=== PATIENT | female | born 1970 | race Caucasian/White ===

== ENCOUNTER 2017-07-08 22:40 | Emergency (ER) | payer BC ==
[~2017-07-08] VITALS: Ht 157.5 cm; Wt 57.6 kg
--- OUTSIDE RECORDS SUMMARY | 2017-07-08 22:48 | XMS | Clinical Summary ---
Demographics + + + | Address | [address] | | | [place] [address] | + + + | Home Phone | | + + + | Preferred Language | Unknown | + + + | Marital Status | Unknown | + + + | Jainism Affiliation | Unknown | + + + | Race | Unknown | + + + | Ethnic Group | Unknown | + + + Author + + + | Author | [facility] | + + + | Organization | [facility] | + + + | Address | Unknown | + + + | Phone | Unavailable | + + + Care Team Providers + +------+ + | Care Development Spec Name | Role | Phone | + +------+ + | Nic Sims MD | PP | | + +------+ + Allergies Not on File Current Medications Not on file Active Problems Not on file Social History + +-------+ +--------+------+ | Tobacco Use | Types | Packs/Day | Years | Date | | | | | Used | | + +-------+ +--------+------+ | Never Assessed | | | | | + +-------+ +--------+------+ + + + | Sex Assigned at | Date Recorded | | | | + + + | Not on file | | + + + Last Filed Vital Signs + + + + | Vital Sign | Reading | Time Taken | + + + + | Blood Pressure | 144/95 | 01/26/2010 12:56 PM PDT | + + + + | Pulse | - | - | + + + + | Temperature | - | - | + + + + | Respiratory Rate | - | - | + + + + | Oxygen Saturation | - | - | + + + + | Inhaled Oxygen | - | - | | Concentration | | | + + + + | Weight | 72.6 kg (160 lb) | 01/26/2010 12:56 PM PDT | + + + + | Height | 157.5 cm (5' 2") | 01/26/2010 12:56 PM PDT | + + + + | Body Mass Index | 29.26 | 01/26/2010 12:56 PM PDT | + + + + Plan of Treatment + + + + + | Health Maintenance | Due Date | Last Done | Comments | + + + + + | Vaccine: | | | | | Dtap/Tdap/Td (1 - | 0 | | | | Tdap) | | | | + + + + + | Cervical Cancer | | | | | Screening (Pap) | 2 | | | + + + + + | Vaccine: Influenza | | | | | (Season Ended) | 8 | | | + + + + + Results Not on filefrom Last 3 Months Insurance +---------+--------+ +------+-------+ + | Payer | Benefi | Subscriber | Type | Phone | Address | | | t Plan | ID | | | | | | / | | | | | | | Group | | | | | +---------+--------+ +------+-------+ + | PREMERA | PREMER | xxxxxxxxxxx | | | [address] [address] | | | A BLUE | xxx | | | [place] | | | CARD | | | | [phone] | +---------+--------+ +------+-------+ + + +--------+ +--------+ + + | Guarantor Name | Accoun | Relation to | Date | Phone | Billing Address | | | t Type | Patient | of | | | | | | | | | | + +--------+ +--------+ + + | JACQUELINE GEE | Person | Self [birth year] | Home: | [address] | | | [place] | | 1970 | [phone] [place] [address] | | | abbie | | | [phone] | | + +--------+ +--------+ + +
--- OUTSIDE RECORDS SUMMARY | 2017-07-08 22:48 | XMS | Clinical Summary ---
Demographics + + + | Address | [address] | | | [place] [address] | + + + | Home Phone | | + + + | Preferred Language | Unknown | + + + | Marital Status | | + + + | Yarsanism Affiliation | Unknown | + + + | Race | Unknown | + + + | Ethnic Group | Unknown | + + + Author + + + | Author | [facility] | | | and [place] | + + + | Organization | [facility] | | | and [place] | + + + | Address | Unknown | + + + | Phone | Unavailable | + + + Support + + +---------+ + | Name | Relationship | Address | Phone | + + +---------+ + | MONSERRAT GEE | ECON | Unknown | | + + +---------+ + Care Team Providers + +------+ + | Care Basket Weaver Name | Role | Phone | + +------+ + PP | Unavailable | + +------+ + Allergies + + + +--------+ + | Active Allergy | Reactions | Severity | Noted | Comments | | | | | Date | | + + + +--------+ + | Penicillins | | | | | + + + +--------+ + Current Medications + + +-------+---------+------+------+-------+ | Prescription | Sig. | Disp. | Refills | Star | End | Statu | | | | | | t | Date | s | | | | | | Date | | | + + +-------+---------+------+------+-------+ | propranolol | Take 120 mg by mouth | | | 12/02 | | Activ | | (INDERAL LA) 120 mg | Daily. | | | 07/21 | | e | | 24 hr capsule | | | | 12 | | | + + +-------+---------+------+------+-------+ | METHOCARBAMOL PO | TABS Take/use as | | | 12/02 | | Activ | | | needed. | | | 07/21 | | e | | | | | | 12 | | | + + +-------+---------+------+------+-------+ | | TABS Take/use as | | | 12/02 | | Activ | | Aspirin-Acetaminophe | needed. | | | 07/21 | | e | | n-Caffeine (EXCEDRIN | | | | 12 | | | | MIGRAINE PO) | | | | | | | + + +-------+---------+------+------+-------+ Active Problems + + + | Problem | Noted Date | + + + | MIGRAINE W/AURA W/INTRACT W/O STATUS MIGRAINOSUS | | + + + + + | Overview: ICD-10 Record update | + + + +---+ | SLEEP APNEA | | + +---+ Social History + +-------+ +--------+------+ | Tobacco [...] + + + | Blood Pressure | 134/80 | 06/09/2009 0000 PST | + + + + | Pulse [...] + + + + | Weight | 71.2 kg (157 lb) | 06/09/2009 0000 PST | + + + + | Height | 157.5 cm (5' 2") | 06/09/2009 0000 PST | + + + + | Body Mass Index | 28.72 | 06/09/2009 0000 PST | + + + + Plan of Treatment + + + + + | Health Maintenance | Due Date | Last Done | Comments | + + + + + | Vaccine: | | | | | Dtap/Tdap/Td (1 - | 0 | | | | Tdap) | | | | + + + + + | CERVICAL CANCER | | 06/01/2008 | | | SCREENING (PAP EVERY | 2 | | | | 3 YEARS 21-64 ) | | | | + + + + + | Vaccine: Influenza | | | | | (Season Ended) | 8 | | | + + + + + Results Not on filefrom Last 3 Months
--- OUTSIDE RECORDS SUMMARY | 2017-07-08 22:48 | XMS | Clinical Summary ---
Demographics + + + | Address | [address] | | | [place] [address] | + + + | Home Phone | | + + + | Preferred Language | Unknown | + + + | Marital Status | | + + + | Baptist Affiliation | Unknown | + + + | Race | Unknown | + + + | Ethnic Group | Unknown | + + + Author + + + | Author | [facility] | | | and [place] | + + + | Organization | [facility] | | | and [place] [...] Team Providers + +------+ + | Care Clip Baker Name | Role | Phone | + [...]
--- OUTSIDE RECORDS SUMMARY | 2017-07-08 22:48 | XMS | Clinical Summary ---
Demographics + + + | Address | [address] | | | [place] [address] | + + + | Home Phone | | + + + | Preferred Language | Unknown | + + + | Marital Status | Unknown | + + + | Rastafarian Affiliation | Unknown | + + + | Race | Unknown | + + + | Ethnic Group | Unknown | + + + Author + + + | Author | [facility] | + + + | Organization | [facility] | + + + | Address | Unknown | + + + | Phone | Unavailable | + + + Care Team Providers + +------+ + | Care Matrix Drier Tender Name | Role | Phone | + [...] | [phone] | | | [address] [address] | | | A BLUE | xxx | | | [place] | | | CARD | | | | [phone] | +---------+--------+ +------+-------+ + + +--------+ +--------+ [...] | 1970 | [phone] | [place] [address] | | | [place] | | | [phone] | | + +--------+ +--------+ + +
[2017-07-08] MEDS ORDERED: COZAAR25 MG PO (22:57)
[2017-07-08] MEDS ORDERED: HYDROCHLOROTHIA25 MG PO (22:57)
--- NOTE | 2017-07-09 06:26 | EKG ---
[facility] [address] [place], [place] [address] Signed Normal sinus rhythm Nonspecific ST abnormality Abnormal ECG No previous ECGs available Confirmed by URIEL SOTO MD ([id number]) on 07/09/2017 6:25:57 AM Electronically Signed By: URIEL SOTO MD 07/09/17 0626 PATIENT NAME: MICHAEL GEE EARNEST Electrocardiogram DATE OF : 70 PHYSICIAN: URIEL SOTO MD REPORT #: [id number] REPORT IS CONFIDENTIAL AND NOT TO BE RELEASED WITHOUT AUTHORIZATION
== END 2017-07-09 00:44 | disposition home or self-care (01) ==
LOC: ED 22:40
DX: R07.9 Chest pain, unspecified (principal); I10 Essential (primary) hypertension; F17.200 Nicotine dependence, unspecified, uncomplicated; Z88.0 Allergy status to penicillin; Z88.1 Allergy status to other antibiotic agents; Z79.899 Other long term (current) drug therapy
CPT/HCPCS: 71045; 80053; 84484; 85025; 93005; 93010; 99284

== ENCOUNTER → 2019-02-02 | Emergency (ER) | payer OTHER ==
[~2019-02-02] VITALS: Ht 157.5 cm; Wt 68.0 kg
[~2019-02-02] MED LIST: AZO STANDARD95 MG PO; CHANTIX1 MG PO; COZAAR25 MG PO; HYDROCHLOROTHIA25 MG PO; K-TAB ER20 MEQ PO; MACROBID 100 M100 MG PO; MULTI VITAMIN1 EACH PO; NORCO 10-325 T1 EACH PO; OSTERA TABLET1 EACH PO; POTASSIUM CHLO20 ME1 PO; PYRIDIUM200 MG PO; TOPAMAX50 MG PO; WELLBUTRIN XL150 MG PO
--- OUTSIDE RECORDS SUMMARY | 2019-02-02 03:12 | XMS ---
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 [facility] has no Care Guidelines for this patient. [place] VISIT COUNT (12 MO.) 1 [place] TOTAL 1 NOTE: Visits indicate total known visits. ED/UCC VISIT TRACKING (12 MO.) 02/02/2019 03:09 [place] [place] TYPE: Emergency COMPLAINT: - URINE PROBLEM INPATIENT VISIT TRACKING (12 MO.) No inpatient visits to display in this time frame [id number]
== END ==
LOC: ED 03:08
DX: N39.0 Urinary tract infection, site not specified (principal); I10 Essential (primary) hypertension; Z88.0 Allergy status to penicillin; Z88.8 Allergy status to other drugs, medicaments and biological substances; Z91.040 Latex allergy status; Z88.1 Allergy status to other antibiotic agents; Z79.899 Other long term (current) drug therapy
CPT/HCPCS: 81001; 87088; 99283

== ENCOUNTER 2019-05-15 20:19 | Emergency (ER) | payer OTHER ==
[~2019-05-15] VITALS: Ht 157.5 cm; Wt 73.5 kg
--- OUTSIDE RECORDS SUMMARY | 2019-05-15 20:22 | XMS ---
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 Care History Medical/Surgical 02/04/2019 [facility] - Patient is currently established with [facility]. If patient is seen in the ED during business hours. Please contact [facility] at [facility]. Care Recommendation: This patient has had 5 or more Emergency Department visits in the last 12 months.\T\nbsp; Patient requires education on the scope and purpose of the ED as an acute care provider not a Primary Care Provider and should not be utilized for chronic conditions.\T\nbsp; These are guidelines and the provider should exercise clinical judgment when providing care. E.D. VISIT COUNT (12 MO.) 2 [facility] TOTAL 2 NOTE: Visits indicate total known visits. ED/UCC VISIT TRACKING (12 MO.) 05/15/2019 20:19 [facility] [place] TYPE: Emergency COMPLAINT: - EAR PAIN 02/02/2019 03:09 [place] [place] TYPE: Emergency COMPLAINT: - URINE PROBLEM DIAGNOSES: - Allergy status to oth drug/meds/biol subst status - Urinary tract infection, site not specified - Other senior living (current) drug therapy - Latex allergy status - Allergy status to penicillin - Allergy status to other antibiotic agents status - Essential (primary) hypertension - Dysuria INPATIENT VISIT TRACKING (12 MO.) No inpatient visits to display in this time frame [id number]
[2019-05-15] MEDS ORDERED: PREDNISONE20 MG PO (21:47)
[2019-05-15] MEDS ORDERED: DOXYCYCLINE HY100 MG PO (21:47)
== END 2019-05-15 21:57 | disposition home or self-care (01) ==
LOC: ED 20:19
DX: J40 Bronchitis, not specified as acute or chronic (principal); I10 Essential (primary) hypertension; Z87.891 Personal history of nicotine dependence; Z88.0 Allergy status to penicillin; Z88.8 Allergy status to other drugs, medicaments and biological substances; Z91.040 Latex allergy status; Z88.1 Allergy status to other antibiotic agents; Z79.899 Other long term (current) drug therapy
CPT/HCPCS: 71046; 99283-25; J7512

== ENCOUNTER 2020-05-28 05:55 | Inpatient (IN) | payer OTHER ==
[~2020-05-28] VITALS: Ht 157.5 cm; Wt 77.3 kg
--- NOTE | ~2020-05-28 | OR ---
[facility] [address] [facility] [employer] [employer], [place] [address] Draft DATE OF OPERATION: 05/28/2020 SURGEON: Ellie Magallon DO PREOPERATIVE DIAGNOSES: 1. Postmenopausal bleeding. 2. History of endometrial ablation. 3. Thickened endometrial stripe. POSTOPERATIVE DIAGNOSES: 1. Postmenopausal bleeding. 2. History of endometrial ablation. 3. Thickened endometrial stripe. 4. Uterine perforation into the right broad ligament. PROCEDURES PERFORMED: 1. Hysteroscopy. 2. Dilation and curettage. 3. Total laparoscopic hysterectomy with bilateral salpingectomy. 4. Cystoscopy. MANUFACTURING LEADER: Lili Jimenes MD. ANESTHESIA: General. ESTIMATED BLOOD LOSS: 150 mL. SPECIMENS: 1. Uterus and cervix. 2. Bilateral fallopian tubes. FINDINGS: The patient with normal external genitalia with normal clitoris, urethral meatus, bilateral [place]'s, and Bartholin's. The cervix is quite stenotic and the uterine cavity was ablated. Full rapid fluid loss was noted consistent with uterine perforation. On laparoscopy, perforation noted into the right broad ligament with significant edema of the right broad ligament secondary to hysteroscopic fluid with minimal blood loss. PATIENT NAME: MICHAEL GEE OPERATIVE REPORT DATE OF : 70 REPORT #: [id number] PHYSICIAN: ELLIE MAGALLON DO PCP: PATY FIGUEROA MD REPORT IS CONFIDENTIAL AND NOT TO BE RELEASED WITHOUT AUTHORIZATION [facility] [address] [place], [place] [address] Draft Normal bilateral ovaries. Status post tubal ligation. Small uterus with normal uterine contour. Following hysterectomy. Some oozing from the right broad ligament that was made hemostatic with Tisseel and judicious use of bipolar cautery. On cystoscopy, normal urethra, bladder, and bilateral ureteral jets noted. COMPLICATIONS: Uterine perforation. INDICATIONS: Ms. Gee is a very pleasant 49-year-old, G15, P8 female, who presents for hysteroscopy, D and C. She has postmenopausal bleeding for the past several months, and FSH confirmed postmenopausal status. She had been amenorrheic for approximately 11 years following uterine ablation. She complains of clots, dysmenorrhea, and malodorous discharge. Ultrasound was performed that demonstrated a normal size uterus with normal echotexture, but thickened ill-defined endometrial stripe. I recommended hysteroscopy, D and C. Risks, benefits, and alternatives were discussed in detail with the patient. The patient understands and wishes to proceed with the procedure. TECHNIQUE: The patient was taken to the operating room, where a time-out was performed to confirm correct patient and correct procedure. MAC anesthesia was adequately established, and the patient was prepped and draped in the dorsal lithotomy position with her feet in Yellofin stirrups. ICPs were on running and no preoperative antibiotics or heparin were indicated. The bladder was drained and a weighted speculum was placed in the vagina and the anterior lip of the cervix was grasped with an Allis clamp. The cervix was noted to be very stenotic with gentle dilation with Hegar dilators. A single-tooth tenaculum was then placed on the posterior lip of the cervix to help keep the uterus midline and to assist with gentle dilation. The external os was gently dilated to a depth of approximately 1 cm and the hysteroscope was then placed into the os. The cystoscope was very slowly advanced along the cervical canal. After several cm, the cervical canal came to an apparent blind end. Gentle dilation was performed with the camera and a tract was gently dilated. It was recognized that this could be an aberrant tract and not entering the uterine cavity due to her history of ablation. A potential space was opened in the uterus that was felt to possibly represent the uterine cavity and an apparent fibroid was noted. A MyoSure Lite device was selected and advanced and very careful curettage was performed to obtain a small sample. The tip of the MyoSure device was kept in excellent view of the camera at all times after a small sample was obtained. There was noted to be a sudden increase in fluid deficit and I quickly suspected perforation. Hysteroscopic fluid was stopped and a uterine sound was selected and gently advanced. This advanced without any resistance greater than the anticipated cervical length of 6.6 cm confirming likely perforation. Hysteroscopy was discontinued and the patient was evaluated with no evidence of hemorrhage. Decision was made to PATIENT NAME: MICHAEL GEE OPERATIVE REPORT DATE OF : 70 REPORT #: [id number] PHYSICIAN: ELLIE MAGALLON DO PCP: PATY FIGUEROA MD REPORT IS CONFIDENTIAL AND NOT TO BE RELEASED WITHOUT AUTHORIZATION [address] [address] Draft proceed with laparoscopy for further evaluation. Dr. Jimenes was called and kindly presented to the operating room. The drapes were removed after the single-tooth tenaculum and Allis clamps were removed from the cervix. The patient was then intubated under general anesthetic and prepped and draped for hysteroscopy. The patient was then given 2 g of Ancef preoperatively and was typed and screened. Vital signs remained normal. The patient was prepped and draped in the dorsal lithotomy position. A latex-free Dailey catheter was inserted into the bladder and noted to be draining well. The anterior lip of the cervix was grasped with an Allis clamp and a [employer] uterine manipulator was gently placed into the uterine cavity with careful attention to not advance greater than 6 cm consistent with uterine size on the ultrasound. The uterine manipulator balloon was inflated and the vaginal cuff placed with excellent placement noted. The surgeon's gloves were changed. Attention was turned to the base of the umbilicus. The base of the umbilicus was infiltrated with 0.25% Marcaine. A 5 mm stab incision was made at the base of the umbilicus and a 5 mm port was attempted to be placed under direct visualization. This was not easily accomplished on the first time and preperitoneal insufflation was noted. The 5 mm trocar was removed and decision was made to proceed with open abdominal entry with Claudine port. A 5 mm incision was then extended to 10 mm. The fascia was grasped with hemostats, elevated, and fascial incision was extended using Metzenbaum scissors. The peritoneum was entered bluntly and an S retractor was used to elevate the peritoneum and Claudine port was placed. Pneumoperitoneum was established and survey of the abdomen and pelvis was performed. No intraperitoneal bleeding was noted. However, the right round ligament was noted to be grossly edematous with small amount of blood, but majority of this edema likely represented hysteroscopic fluid. The left broad ligament was normal. Decision was made to proceed with hysterectomy as the patient had desired strongly hysterectomy prior to the procedure and could not rule out retroperitoneal bleed in the broad ligament. A 5 mm assist port was placed in left lower quadrant under direct visualization without complication. An 8 mm expanding assist port was placed in the right lower quadrant under direct visualization without complication. The left fallopian tube was grasped, elevated, and dissected along the mesosalpinx using LigaSure device. Contralateral fallopian tube was then grasped and divided along the mesosalpinx without difficulty. The right utero-ovarian ligament was fulgurated and divided with excellent hemostasis. The round ligament was then fulgurated and divided and the broad ligament opened. A small amount of blood clot with hysteroscopic fluid was noted with no active bleeding identified. The anterior leaf of the right broad ligament was divided down to the vaginal cup without difficulty. The posterior leaf was divided down to the right uterosacral ligament without difficulty. Significant edema made identification of the uterine vessels somewhat difficult and decision was made to proceed with the left side of the dissection. The left utero-ovarian was fulgurated and divided and the left round fulgurated and divided. The leaves of the broad ligament were dissected to the angle of the vaginal cup anteriorly into the uterosacral ligament posteriorly. The bladder was then pushed well below the vaginal cup in the uterosacral ligament divided posteriorly. PATIENT NAME: MICHAEL GEE OPERATIVE REPORT DATE OF : 70 REPORT #: [id number] PHYSICIAN: ELLIE MAGALLON DO PCP: PATY FIGUEROA MD REPORT IS CONFIDENTIAL AND NOT TO BE RELEASED WITHOUT AUTHORIZATION [address] [address] Draft The uterine vessels were identified, fulgurated, and divided without difficulty and with excellent hemostasis appreciated. Attention was then turned to the right uterine vessels. These were better identified. However, this area was quite edematous as well. They were then fulgurated and divided also with excellent hemostasis. No active bleeding was noted from the broad ligament. Colpotomy was then performed using Sonicision device in a circumferential manner without complication. The uterus and cervix were delivered through the vagina. Some oozing was noted along the posterior peritoneum and to the right broad ligament. Judicious use of the above bipolar cautery was used with careful dissection of the broad ligament to avoid injury of the ureter. Once hemostasis was appreciated, the pelvis was irrigated. The colpotomy was then repaired using V-Loc suture with an Endostitch device with careful attention to incorporate the uterosacral ligaments bilaterally as well as the vaginal epithelium with each bite. Excellent closure was noted with good apical support. The pelvis was again irrigated. A small amount of oozing was noted near the right ovary as well as the right broad ligament. Clots was fulgurated at the ovary and the ovary was noted to be hemostatic. The oozing continued along the peritoneal edge of the right broad ligament. A very careful dissection using blunt dissection and hydrodissection was performed to isolate oozing vessels and fulguration was judiciously applied with the LigaSure device with careful attention to avoid ureteral injury. Once excellent hemostasis was appreciated, Tisseel was applied to the dissection sites again with excellent hemostasis appreciated. Pneumoperitoneum was reduced and five minutes were allowed to pass. Pneumoperitoneum was reestablished with no additional oozing noted. The pelvis was irrigated with large amount of fluid again to ensure hemostasis. Once hemostasis was appreciated, pneumoperitoneum was reduced. Trocars were removed and umbilical fascia was reapproximated using 0 Vicryl in a running nonlocked manner. Stay sutures previously placed on the fascia were ligated to provide additional support. The skin was then reapproximated using 4-0 Monocryl in subcuticular stitch with excellent hemostasis and cosmesis. Attention was then turned to cystoscopy. The Dailey catheter was removed and a 70 degree cystoscope was placed in the urethral meatus and advanced under direct visualization to the bladder. Normal urethra and bladder were noted. Bilateral ureteral jets were appreciated. The bladder was drained. Dailey catheter was reinserted and the patient was taken to PACU in good and stable condition. Sponge, needle, instrument count was correct x2 at the end of the procedure. Dr. Jimenes was present and participated in all portions of procedure. Fluid deficit was noted to be 1400 at the end of hysteroscopy. Ellie Magallon, DO PATIENT NAME: JOANNRONNELLMICHAEL OPERATIVE REPORT DATE OF : 70 REPORT #: [id number] PHYSICIAN: ELLIE MAGALLON DO PCP: PATY FIGUEROA MD REPORT IS CONFIDENTIAL AND NOT TO BE RELEASED WITHOUT AUTHORIZATION [facility] [address] [facility] [address] [place] [address] Draft NKECHI/MALIHA /[id number] Copies: ~ PATIENT NAME: VALENTINOELIELMICHAEL OPERATIVE REPORT DATE OF : 70 REPORT #: [id number] PHYSICIAN: ELLIE MAGALLON DO PCP: PATY FIGUEROA MD REPORT IS CONFIDENTIAL AND NOT TO BE RELEASED WITHOUT AUTHORIZATION
[~2020-05-28 05:55] MED LIST changes: +DOXYCYCLINE HY100 MG PO; -OSTERA TABLET1 EACH PO; +PREDNISONE20 MG PO; +VITAMIN D325 MCG PO
--- NOTE | 2020-05-28 10:52 | NUR ---
05/28/20 1051 Melani Ureña 1043- PT ARRIVES TO PACU NONAROUSABLE TO NOXIOUS STIMULI WITH AN OPA IN PLACE. RESP EVEN AND UNLABORED. OXYGEN SAT HIGH 90'S ON 8L VIA MASK. PT'S ABD IS DISTENDED. DR. DICKINSON IS AWARE.
--- NOTE | 2020-05-28 11:44 | NUR ---
49YR OLD WOMAN TRANSFERRED VIA STRETCHER TO ROOM 109. PT IS ALERT, ORIENTED, SLID ONTO WITH 34 PERSON ONTO BED, PT DENIES NAUSEA, RATES ABD PAIN 6/10, SCOPE SITES WITH BANDAIDES. SCANT AMOUNT OF DRAINAGE VISIBLE. STREET CATH IS PATENT WITH YELLOW URINE, NOTED LATEX ALLERGY. POSITIONED FOR COMFORT, SCD'S ON, HOB AT 30 DEG, GIVEN CELL PHONE SHE WANTS TO TALK WITH DAUGHTER. ORIENTED TO ROOM AND CALL LIGHT, DENIES FURTHER NEEDS, ORDERS NOTED.
--- NOTE | 2020-05-28 12:03 | NUR ---
DR DICKINSON HERE TO SEE PT AND EXPLAIN SURGERY, PT DENIES ANY QUESTIONS, WARM BLANKETS FOR COMFORT, ASKING FOR PAIN MEDICATION.
--- NOTE | 2020-05-28 12:15 | NUR ---
MORPHINE 4MG IV GIVEN, WARM BLANKETS FOR COMFORT. RESTING BETTER.
--- NOTE | 2020-05-28 13:38 | NUR ---
PT IS AWAKE, DENIES NAUSEA, STATES SHE COULD EAT SOMETHING, WILFREDO CRACKERS AND SPRITE GIVEN. SCOPE SITES UNCHANGED, SCANT AMOUNT RED DRAINAGE ON PERIPAD. IVF PATENT, STREET SECURE AND PATENT WITH YELLOW URINE. CALL LIGHT IN EASY REACH.
--- NOTE | 2020-05-28 13:56 | NUR ---
TOLERATING CRACKERS WELL, LUNCH ORDER PLACED, NORCO GIVEN AT THIS TIME. TALKING ON PHONE WITH FAMILY.
--- NOTE | 2020-05-28 14:25 | NUR ---
SET UP WITH LUNCH TRAY, REPORTS PAIN IMPROVED AFTER NORCO, DENIES NAUSEA. AGREES TO GO FOR WALK AFTER EATING.
[2020-05-28] MEDS ORDERED: CYCLOBENZAPRINE10 MG PO (15:06)
--- NOTE | 2020-05-28 15:27 | NUR ---
PT STOOD AND AMBULATED IN HALLWAY, TOLERATED VERY WELL, INSTRUCTED ON USE OF IS. WANTED TO LAY BACK DOWN WITH WARM BLANKETS, WEARING SCD'S. RATING ABD PAIN 4/10 AFTER WALK. IN GOOD SPIRITS. WATCHING TV PROGRAM AND ORDERED DINNER. CALL LIGHT IN EASY REACH.
[2020-05-28] MEDS ORDERED: BUPROPION HCL150 M2 PO (16:17)
--- NOTE | 2020-05-28 16:19 | NUR ---
MED REC COMPLETE
--- NOTE | 2020-05-28 16:58 | NUR ---
José Antoniolofco had no bowel movement but did pass gas. Pt returned to bed, SCD replaced and restarted at privious settings. Warm blanket applied to abdomen. Call light withing reach. Pt denies he needs anything further at this time.
--- NOTE | 2020-05-28 17:09 | NUR ---
DINNER TRAY HAS ARRIVED, PT REMAINS IN GOOD SPIRITS, STATES SHE IS HUNGRY.
--- NOTE | 2020-05-28 17:59 | NUR ---
PATIENT SITTING UP IN BED WATCHING TV. PULSE HIGH, RN NOTIFIED. VITALS CHARTED. CALL LIGHT IN REACH. NO FURTHER NEEDS AT THIS TIME.
--- NOTE | 2020-05-28 18:16 | NUR ---
CALL PLACED TO DR DICKINSON TO UP DATE HIM ON PATIENT. HRR-124, GOOD URINE OUTPUT, VS STABLE, H/H 12.5/38.3 @ 1315. SCOPE SITES INTACT, PATIENT DENIES ANY CONCERNS, STATES SHE IS COMFORTABLE. DR DICKINSON SAID HE IS HAD PLANNED ON STOPPING IN TO SEE HER. NO NEW ORDERS.
--- NOTE | 2020-05-28 19:00 | NUR ---
DR DICKINSON IN TO SEE PT, DECREASED IV FLUIDS TO 75ML/HR, STATES HE WILL ENTER ORDER. PLEASED WITH PROGRESS.
--- NOTE | 2020-05-28 19:05 | NUR ---
REPORT RECEIVED FROM DEVONTE ZHANG. PT RESTING IN BED A+O, IVF INFUSING WNL. YENIFER PATENT. STATES NO NEEDS AT THIS TIME, CALL LIGHT IN REACH
--- NOTE | 2020-05-28 20:07 | NUR ---
IN TO BOOST POT IN BED, PROVIDED PT WITH A SODA, NO FURTHER NEEDS AT THIS TIME
--- NOTE | 2020-05-28 20:45 | NUR ---
IN TO GET PT VITALS, I&Os DONE, CATH CATH COMPLETE AT THIS TIME, NO FURTHER NEEDS AT THIS TIME
--- NOTE | 2020-05-28 21:30 | NUR ---
Scheduled medications administered, Pt reports abdominal pain but states she can wait until PRN medication available. Lap sites x3 with bandaids, C/D/I, slight bruising around umbilicus, abdomen soft and tender. IVF infusing WNL, new bag hung. SCDs in place. Pt tolerating regular diet. Reports no further needs at this time, call light in reach.
--- NOTE | 2020-05-28 22:49 | NUR ---
PRN medication administered for 6/10 pain. Pt resting in bed watching tv, states no further needs at this time. Call light in reach.
--- NOTE | 2020-05-28 23:42 | NUR ---
Rounded on patient, resting in bed with eyes closed. Breathing unlabored. IVF infusing WNL. No apparent needs.
--- NOTE | 2020-05-29 02:25 | NUR ---
IN TO GET 2AM VITALS, STREET EMPTIED, FRESH ICE WATER GIVEN, NO FURTHER NEEDS AT THIS TIME
--- NOTE | 2020-05-29 05:47 | NUR ---
Dailey cath DC per orders, pt due to void. States no pain at this time, water refilled, IVF infusing WNL. VSS, A+O, on room air. Call light in reach.
--- NOTE | 2020-05-29 06:13 | NUR ---
Pt requests PRN pain medication for 10/10 abdominal pain. Lap sites C/D/I, abdomen soft. Pt due to void after tejada removal. Coffee and water provided, gown changed. Pt reports no other needs at this time, in good spirits. Call light in reach.
--- NOTE | 2020-05-29 07:06 | NUR ---
PT UP TO VOID, SBA WITH IV POLE, NO FURTHER NEEDS AT THIS TIME
--- NOTE | 2020-05-29 09:30 | NUR ---
REPORT RECIEVED FROM NIGHT RN AND PT. CARE RESUMED. PT. IS ALERT AND ORIENTED. ABD LAP SITE DRESSINGS X3 ARE CDI. PT. REPORTS 4/10 ABD PAIN AND NORCO ADMIN. BOWEL TONES ACTIVE AND ABD TENDER TO PALP. PT. PASSING GAS. PT. STATES SHE TOLERATED BREAKFAST WELL AND DENIES NAUSEA. DISCUSSED POC AND WILL AMBULATE AROUND THE UNIT THIS MORNING. PT. LEFT RESTING IN BED WITH CALL LIGHT IN REACH.
--- NOTE | 2020-05-29 10:26 | NUR ---
SPOKE WITH PATIENT IN ROOM. SHE HAD JUST BEEN IN THE BATHROOM, IS AMBULATING INDEPENDENTLY IN ROOM. PATIENT LIVES WITH ADULT CHILDREN WHO CAN HELP NEEDED. THEY WILL PROVIDE TRANSPORTATION HOME. PATIENT USES NO DME AND DOES NOT KNOW OF ANYTHING SHE NEEDS. HER PREFERENCE FOR DISCHARGE IS HOME. SHE IS UNEMPLOYED AT THIS TIME, BUT IS NOT WORRIED FINANCIALLY DUE TO OTHERS LIVING IN THE HOME. SHE IS NOT CONCERNED ABOUT AFFORDING MEDS/FOOD/UTILITIES. PATIENT WILL DISCHARGE TO HOME.
--- NOTE | 2020-05-29 10:57 | NUR ---
PATIENT SITTING UP IN BED WATCHING TV. VITALS AND I&O'S CHARTED. CALL LIGHT IN REACH. NO FURTHER NEEDS AT THIS TIME.
--- NOTE | 2020-05-29 12:18 | PATH ---
[facility] [address] [place], [place] [address] Signed SPECIMEN(S): A UTERINE CURETTINGS SPECIMEN(S): B CERVIX, UTERUS, AND BILATERAL TUBES SPECIMEN SOURCE: A. UTERINE CURETTINGS B. CERVIX, UTERUS, AND BILATERAL TUBES CLINICAL HISTORY: Hysteroscopy DC. Postmenopausal bleeding. History of endometrial ablation. FINAL PATHOLOGIC DIAGNOSIS: A. Uterus, curettage: - Fragments of benign smooth muscle, squamous epithelium, and vessels with no histopathologic abnormality. B. Uterus, cervix, and bilateral fallopian tubes, hysterectomy and bilateral salpingectomy: - Cervix: Extensively denuded mucosa, Nabothian cysts. - Endometrium: No endometrium identified, changes compatible with endometrial ablation. - Myometrium: No histologic abnormality. - Serosa: Endosalpingiosis. - Fallopian tubes: Evidence of prior ligation, paratubal cysts. - No evidence of malignancy. NAL:cml:C2NR MICROSCOPIC EXAMINATION: Histologic sections of all submitted blocks are examined by light microscopy. These findings, together with the gross examination, support the pathologic diagnosis. GROSS DESCRIPTION: Two specimens are received in two containers, labeled "RG." A. The specimen, labeled "RG, uterine curettings," is received in formalin and consists of irregular shaped, membranous and hemorrhagic tissue fragments that aggregate measure 1.5 x 0.7 x 0.1 cm. Specimen is entirely submitted in cassette (A1). B. The specimen, labeled "RG, cervix, uterus, bilateral fallopian tubes," is received in formalin and consists of a uterus and cervix that measures 3.5 x 2.7 x 5.6 cm. Serosal surface is pink-humphries, smooth and focally congested. The uterus shows transmural defect in right upper corner that measures 1.5 cm in diameter. The uterus weighs 53 grams. PATIENT NAME: MICHAEL GEE PATHOLOGY DATE OF : 70 REPORT #: [id number] PHYSICIAN: VIANNEY PATHOLOGY PCP: PATY FIGUEROA MD REPORT IS CONFIDENTIAL AND NOT TO BE RELEASED WITHOUT AUTHORIZATION [facility] [address] [place], [place] [address] Signed The ectocervix is pink-humphries, focally congested and measures 2.6 x 2.7 cm. Sectioning through the cervix reveals pink-humphries, homogenous tissue. The endometrial cavity measures 2.2 x 1.0 cm. It is lined with pink-humphries, smooth endometrium. Sectioning through the myometrium reveals pink-humphries, homogenous tissue. No masses or abnormalities are grossly identified. The myometrium measures 1.1 cm in thickness. The endometrium measures less than 0.1 cm in thickness. from the uterus, within the container are two undesignated fallopian tubes. Both of them show fimbria and violaceous and smooth serosa. The first fallopian tube measures 3.5 cm in length and 0.7 cm in diameter. It shows a white plastic clip on proximal end. The second fallopian tube measures 5.6 cm in length and 0.7 cm in diameter. The tube is previously ligated with white plastic clip. Sectioning through both fallopian tubes is grossly unremarkable. Cassette Summary: (B1) Cervix, outbound sales representative sections, posterior inked (B2) Endomyometrium, outbound sales representative sections (B3) Endometrium, additional sections (B4) First fallopian tube, outbound sales representative sections (B5) Second fallopian tube, outbound sales representative sections JS (under the direct supervision of a pathologist) The Gross Description was prepared using a voice recognition system. The report was reviewed for accuracy; however, sound-alike word errors, addition and/or deletions may occur. If there is any question about this report, please contact Client Services. PERFORMING LABORATORY: The technical component was performed by [employer] [address] ([employer] Member: Sarah Alegria MD; CLIA# [id number]). Professional interpretation was performed by [facility], [address] [place] [address] (CLIA# [id number]). Diagnostician: Belem Perdomo MD Pathologist Electronically Signed 05/29/2020 Copies: PATIENT NAME: MICHAEL GEE PATHOLOGY DATE OF : 70 REPORT #: [id number] PHYSICIAN: VIANNEY TALLEY PCP: PATY FIGUEROA MD REPORT IS CONFIDENTIAL AND NOT TO BE RELEASED WITHOUT AUTHORIZATION [facility] [address] [place], [place] [address] Signed ~ PATIENT NAME: MICHAEL GEE PATHOLOGY DATE OF : 70 REPORT #: [id number] PHYSICIAN: VIANNEY PATHOLOGY PCP: PATY FIGUEROA MD REPORT IS CONFIDENTIAL AND NOT TO BE RELEASED WITHOUT AUTHORIZATION
[2020-05-29] MEDS ORDERED: IBUPROFEN800 MG PO (12:39)
[2020-05-29] MEDS ORDERED: HYDROCODON-ACE1 EA10 PO (12:40)
--- NOTE | 2020-05-29 13:05 | NUR ---
DISCHARGE PACKET REVIEWED WITH PT. AND ALL QUESTIONS ANSWERED. ABD LAP. DRESSINGS X3 ARE CDI. PT. LEFT WITH ALL BELONGINGS IN WHEELCHAIR WITH CLERICAL CLERK.
== END 2020-05-29 13:15 | disposition home or self-care (01) | DRG 742 ==
LOC: DS 05:55 → OPS 05:55 → DS 07:30 → OPS 07:30 → MS 11:30 → OPS 11:31 → MS 11:32
PROVIDERS: ADMIT Obstetrics & Gynecology; ATTEND Obstetrics & Gynecology
PROC: 0UDB8ZX Extraction of Endometrium, Via Natural or Artificial Opening Endoscopic, Diagnostic (ICD-10-PCS; principal; 2020-05-28 07:30)
PROC: 0UT9FZZ Resection of Uterus, Via Natural or Artificial Opening With Percutaneous Endoscopic Assistance (ICD-10-PCS; 2020-05-28 07:30)
PROC: 0UT7FZZ Resection of Bilateral Fallopian Tubes, Via Natural or Artificial Opening With Percutaneous Endoscopic Assistance (ICD-10-PCS; 2020-05-28 07:30)
DX: N95.0 Postmenopausal bleeding (principal); N99.71 Accidental puncture and laceration of a genitourinary system organ or structure during a genitourinary system procedure; N94.6 Dysmenorrhea, unspecified; R93.89 Abnormal findings on diagnostic imaging of other specified body structures; I10 Essential (primary) hypertension; R00.0 Tachycardia, unspecified; Z88.1 Allergy status to other antibiotic agents; Z88.8 Allergy status to other drugs, medicaments and biological substances; Z88.0 Allergy status to penicillin; Z91.040 Latex allergy status; Z98.890 Other specified postprocedural states; Z87.891 Personal history of nicotine dependence; Z79.899 Other long term (current) drug therapy
CPT/HCPCS: 00840; 36415; 85025; 85027; 86850; 86900; 86901; J0171; J0330; J0690; J1100; J1650; J1885; J2001; J2250; J2270; J2405; J2704; J3010; J7121

== ENCOUNTER 2021-08-10 06:50 | Day surgery (SDC) | payer OTHER ==
[~2021-08-10] VITALS: Ht 157.5 cm; Wt 77.2 kg
[~2021-08-10 06:50] MED LIST changes: +BUPROPION HCL150 M2 PO; +CYCLOBENZAPRINE10 MG PO; +HYDROCODON-ACE1 EA10 PO; +IBUPROFEN800 MG PO
--- NOTE | 2021-08-10 08:48 | NUR ---
08/10/21 0848 Autumn Rodarte 0842 PATIENT ARRIVES TO PACU UNRESPONSIVE TO VERBAL STIMULI. RESP EVEN AND UNLABORED, NC AT 2 LITERS.
--- NOTE | 2021-08-10 09:51 | NUR ---
0945: PT RETURNS TO DAY SURGERY ROOM 8 FOR EXTENDED RECOVERY. AROUSES WITH VERBAL STIMULATION BUT REMAINS DROWSY. VSS, RESP EVEN AND UNLABORED ON RA. DENIES NAUSEA AND PAIN. PASSING GAS INTERMITTENTLY. ICE WATER AT THE BEDSIDE. POC DISCUSSED AND PT AGREEABLE AT HIS TIME. CALL LIGHT WITHIN REACH. NO NEEDS VOICED
--- NOTE | 2021-08-10 10:52 | NUR ---
1050: PT WAKES WITH VERBAL STIMULUS AND HOLDS APPROPRIATE CONVERSATION. STATES "I JUST WANT A FEW MORE MINUTES" VSS, RESP EVEN AND UNLABORED. CONTS TO PASS GAS INTERMITTENTLY. SARAH PO INTAKE. DENIES PAIN AND NAUSEA. CALL LIGHT WITHIN REACH. NO NEEDS AT THIS TIME
--- NOTE | 2021-08-10 17:12 | NUR ---
1055: PT WITH CALL FOR THIS RN. STATES READINESS FOR DC. DANGLED AT THE BEDSIDE. SARAH WELL, DENIES DIZZINESS AND SOB. AMBULATES TO BR WITH STANDBY ASSIST. STEADY GAIT. DRESSES INDEPENDENTLY FOR DC. SL REMOVED WITH CATH TIP INTACT AND PRESSURE APPLIED TO SITE, WNL. DC INSTRUCTIONS PROVIDED AND DISCUSSED ORDERED. PT WITHOUT QUESTIONS AND CONCERNS AT THIS TIME, VOICES UNDERSTANDING. 1105: WHEELED OFF OF UNIT IN WC BY THIS RN FOR DC. TRANSFERS INTO VEHICLE INDEPENDENTLY AND APPROPRIATELY. NO PHYSICAL S/S OF DISTRESS AT THIS TIME
--- NOTE | 2021-08-11 06:04 | OR ---
[facility] [address] [place], [place] [address] Signed DATE OF OPERATION: 08/10/2021 SURGEON: Karlene Ruiz MD PREOPERATIVE DIAGNOSES: 1. Vaginal bleeding after bowel movements. 2. Chronic constipation, diarrhea. POSTOPERATIVE DIAGNOSES: 1. Minimal internal hemorrhoids. 2. 4 mm polyp at 6 cm. 3. 4 mm polyp at 8 cm. 4. 4 mm polyp at 55 cm (left colon). 5. 4 mm polyp at 25 cm. PROCEDURE: Colonoscopy with hot biopsies and random cold biopsies. ESTIMATED BLOOD LOSS: None. INDICATIONS: Jacqueline is a 50-year-old female asked to see me for colonoscopy. Apparently, she is having some bleeding from her vagina after her bowel movements. 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 She has had a previous hysterectomy. There is mesh holding up the vagina. She said there is no pain with her bleeding or the bowel movements. She talks about years of constipation alternating with diarrhea. She told me children were born vaginally. She has been through various laxatives and is very knowledgeable in that regard. She has no family history of colon cancer or polyps. No family history of inflammatory bowel disease. In the office, I gave her a pamphlet on colonoscopy. We reviewed the nature of the test. She understands there is risk including, but not limited to gas bloating, crampy abdominal pain, bleeding, perforation requiring surgery, and missed diagnosis. She also understands the need for IV conscious sedation. She had expressed understanding and wished to proceed. PROCEDURE IN DETAIL: Jacqueline was taken into our endoscopy suite and placed in the left lateral decubitus position. She was given a total of 10 mg of Versed and 200 mcg of fentanyl IV. She was still awake, we could not get the camera up much beyond the left colon. Therefore we Electronically Signed By: KARLENE RUIZ MD 08/11/21 0604 PATIENT NAME: JACQUELINE GEE OPERATIVE REPORT DATE OF : 70 REPORT #: [id number] PHYSICIAN: KARLENE RUIZ MD PCP: YULIA WETZEL PA-C REPORT IS CONFIDENTIAL AND NOT TO BE RELEASED WITHOUT AUTHORIZATION [facility] [address] [place], [place] [address] Signed asked an anesthesia provider to come and add propofol, that worked out very nicely. Jacqueline relaxed and the scope passed quite readily, then into the cecum itself. Her prep was quite excellent. We could easily see the appendiceal orifice and the ileocecal valve. We took pictures throughout for photodocumentation. The above-mentioned polyps were removed with the help of hot biopsy forceps. We took several random biopsies throughout the colon due the history of diarrhea. However, the colon appeared quite unremarkable. The rectum was unremarkable. Upon retroflexion of scope, we can see just routine minimal internal hemorrhoid columns. No inflammatory changes whatsoever. The gas had been suctioned out. The colonoscope removed. The digital rectal exam also showed no external hemorrhoids. No evidence of fissure particular in the anterior posterior midline. There were no fistula tracts. She had good sphincter tone. In fact, her sphincter is if not 4 cm in length, which is a little longer than many female patients. There were no masses. Overall, Jacqueline tolerated the procedure quite well. RECOMMENDATIONS: I will see Jacqueline back in my office in 7 to 14 days to review her results. Karlene Ruiz MD ALB/MODL /[id number] cc: MD Elmer Koenig DO Jacqueline Brown, PA-C Copies: KARLENE RUIZ MD, JAMES D DO ~ Electronically Signed By: KARLENE RUIZ MD 08/11/21 0604 PATIENT NAME: JACQUELINE GEE OPERATIVE REPORT DATE OF : 70 REPORT #: [id number] PHYSICIAN: KARLENE RUIZ MD PCP: YULIA WETZEL PA-C REPORT IS CONFIDENTIAL AND NOT TO BE RELEASED WITHOUT AUTHORIZATION
--- NOTE | 2021-08-11 11:01 | PATH ---
[facility] [address] [place], [place] [address] Signed SPECIMEN(S): A RECTAL POLYP AT 6 CM SPECIMEN(S): B DESCENDING/LEFT COLON POLYP SPECIMEN(S): C RANDOM COLON BIOPSY SPECIMEN(S): D COLON POLYP AT 35 CM SPECIMEN(S): E COLON POLYP AT 8 CM SPECIMEN SOURCE: A. RECTAL POLYP AT 6 CM B. DESCENDING/LEFT COLON POLYP C. RANDOM COLON BIOPSY D. COLON POLYP AT 35 CM E. COLON POLYP AT 8 CM CLINICAL HISTORY: Rectal bleeding, chronic constipation, diarrhea. Post-op: Internal hemorrhoids, colon rectal polyps. Colonoscopy. FINAL PATHOLOGIC DIAGNOSIS: A. Rectum, polyp at 6 cm, polypectomy: - Hyperplastic polyp. - Negative for dysplasia or malignancy. B. Colon, descending/left, polyp, polypectomy: - Fragments of tubular adenoma. - Negative for high-grade dysplasia or malignancy. C. Colon, random, biopsy: - Fragments of colonic mucosa with no histopathologic abnormality. - Negative for active, chronic, or microscopic colitis. - Negative for dysplasia or malignancy. D. Colon, polyp at 35 cm, polypectomy: - Favor cauterized hyperplastic polyp. - Negative for dysplasia or malignancy. E. Colon, polyp at 8 cm, polypectomy: - Hyperplastic polyp. - Negative for dysplasia or malignancy. COMMENT: Regarding specimen D: The histology of the colonic mucosa is altered by cautery artifact. A hyperplastic polyp is favored. No dysplasia is identified. NAL:cml:[id number] PATIENT NAME: MICHAEL GEE PATHOLOGY DATE OF : 70 REPORT #: [id number] PHYSICIAN: VIANNEY TALLEY PCP: YULIA WETZEL PA-C REPORT IS CONFIDENTIAL AND NOT TO BE RELEASED WITHOUT AUTHORIZATION [facility] [address] [place], [place] [address] Signed MICROSCOPIC EXAMINATION: Histologic sections of all submitted blocks are examined by light microscopy. These findings, together with the gross examination, support the pathologic diagnosis. GROSS DESCRIPTION: Five specimens are received in five containers, labeled "RG." A. The specimen, labeled "RG, 1," and designated on the requisition "rectal polyp at 6 cm," is received in formalin and consists of one humphries soft tissue fragment that measures 0.3 cm in greatest dimension. The specimen is entirely submitted in cassette (A1). B. The specimen, labeled "RG, 2," and designated on the requisition "descending/left colon polyp," is received in formalin and consists of two humphries soft tissue fragments that measure 0.3 cm in greatest dimension. The specimen is entirely submitted in cassette (B1). C. The specimen, labeled "RG, 3," and designated on the requisition "random colon," is received in formalin and consists of three humphries soft tissue fragments that measure 0.3 cm in greatest dimension. The specimen is entirely submitted in cassette (C1). D. The specimen, labeled "RG, 4," and designated on the requisition "colon polyp at 35 cm," is received in formalin and consists of one humphries soft tissue fragment that measures 0.3 cm in greatest dimension. The specimen is entirely submitted in cassette (D1). E. The specimen, labeled "RG, 5," and designated on the requisition "colon polyp at 8 cm," is received in formalin and consists of one humphries soft tissue fragment that measures 0.3 cm in greatest dimension. The specimen is entirely submitted in cassette (E1). AT (under the direct supervision of a pathologist) The Gross Description was prepared using a voice recognition system. The report was reviewed for accuracy; however, sound-alike word errors, addition and/or deletions may occur. If there is any question about this report, please contact Client Services. PERFORMING LABORATORY: The technical component was performed by [facility], [address] [place] [id number] (CLIA# [id number]). Professional interpretation was performed by appbackr [facility], [address] [address] (CLIA# [id number]). Diagnostician: Belem Perdomo MD PATIENT NAME: MICHAEL GEE PATHOLOGY DATE OF : 70 REPORT #: [id number] PHYSICIAN: VIANNEY TALLEY PCP: YULIA WETZEL PA-C REPORT IS CONFIDENTIAL AND NOT TO BE RELEASED WITHOUT AUTHORIZATION [facility] [address] [place], [place] [address] Signed Pathologist Electronically Signed 08/11/2021 Copies: ~ PATIENT NAME: MICHAEL GEE PATHOLOGY DATE OF : [birth year] REPORT #: [id number] PHYSICIAN: VIANNEY PATHOLOGY PCP: YULIA WETZEL PA-C REPORT IS CONFIDENTIAL AND NOT TO BE RELEASED WITHOUT AUTHORIZATION
== END 2021-08-10 11:05 | disposition home or self-care (01) ==
LOC: DS 06:50 → OPS 06:50 → DS 08:15 → OPS 10:30
PROVIDERS: ATTEND Colon & Rectal Surgery
PROC: 0DBG8ZX Excision of Left Large Intestine, Via Natural or Artificial Opening Endoscopic, Diagnostic (ICD-10-PCS; 2021-08-10)
PROC: 0DBM8ZX Excision of Descending Colon, Via Natural or Artificial Opening Endoscopic, Diagnostic (ICD-10-PCS; principal; 2021-08-10 08:15)
DX: D12.4 Benign neoplasm of descending colon (principal); I10 Essential (primary) hypertension; K64.8 Other hemorrhoids; Z88.1 Allergy status to other antibiotic agents; Z88.0 Allergy status to penicillin
CPT/HCPCS: 84703; J2250; J2704; J3010; J7121

== ENCOUNTER 2022-01-10 11:27 | Emergency (ER) | payer OTHER ==
[~2022-01-10] VITALS: Ht 157.5 cm; Wt 69.8 kg
[2022-01-10] MEDS ORDERED: AMBIEN CR6.25 MG PO (11:41)
[2022-01-10] MEDS ORDERED: FLUTICASONE PRO16 GM NAS (11:41)
--- NOTE | 2022-01-10 16:18 | EKG ---
[facility] [address] [facility] [place] [address] Signed Normal sinus rhythm Normal ECG When compared with ECG of 21-MAY-2020 16:38, Nonspecific T wave abnormality no longer evident in Lateral leads Confirmed by URIEL SOTO MD ([id number]) on 01/10/2022 4:18:53 PM Electronically Signed By: URIEL SOTO MD 01/10/22 1618 PATIENT NAME: MICHAEL GEE Electrocardiogram DATE OF : 70 PHYSICIAN: URIEL SOTO MD REPORT #: [id number] REPORT IS CONFIDENTIAL AND NOT TO BE RELEASED WITHOUT AUTHORIZATION
== END 2022-01-10 15:24 | disposition home or self-care (01) ==
LOC: ED 11:27
DX: R07.9 Chest pain, unspecified (principal); I10 Essential (primary) hypertension; I25.2 Old myocardial infarction; Z87.891 Personal history of nicotine dependence; Z88.0 Allergy status to penicillin; Z88.8 Allergy status to other drugs, medicaments and biological substances; Z91.040 Latex allergy status; Z88.1 Allergy status to other antibiotic agents; Z79.899 Other long term (current) drug therapy
CPT/HCPCS: 36415; 71045; 80053; 83735; 84484; 85025; 93005; 93010; 99285-25; A9270

== ENCOUNTER 2022-01-14 17:39 | Emergency (ER) | payer OTHER ==
[~2022-01-14] VITALS: Ht 157.5 cm; Wt 69.8 kg
[~2022-01-14 17:39] MED LIST changes: +AMBIEN CR6.25 MG PO; +FLUTICASONE PRO16 GM NAS
--- OUTSIDE RECORDS SUMMARY | 2022-01-14 17:43 | XMS ---
PreManage Notification: MICHAEL GEE Security Supervisor Assembling Events No recent Security Events currently on file CRITERIA MET - [facility] - 2 Visits in 30 Days CARE PROVIDERS YULIA WETZEL Physician Back Winder Current PHONE: Unknown PATY FIGUEROA Internal Medicine 02/04/2019-Current PHONE: Unknown P[place]a has no Care Guidelines for this patient. Care History Medical/Surgical 05/16/2019 [facility] Left voice mail to follow up with PCP.\T\nbsp; Next scheduled appointment not until 09/10/2019 02/04/2019 [facility] - Patient is currently established with [facility]. If patient is seen in the ED during business hours. Please contact CHWs at [facility]. Care Recommendation: If this patient has had 5 or more Emergency Department visits in the last 12 months.\T\nbsp; Patient will require education on the scope and purpose of the ED as an acute care provider not a Primary Care Provider and should not be utilized for chronic conditions.\T\nbsp; These are guidelines and the provider should exercise clinical judgment when providing care. [place] VISIT COUNT (12 MO.) 2 [place] TOTAL 2 NOTE: Visits indicate total known visits. ED/UCC VISIT TRACKING (12 MO.) 01/14/2022 17:40 [place] TYPE: Emergency COMPLAINT: - LT HAND INJURY 01/10/2022 11:27 [place] TYPE: Emergency COMPLAINT: - CHEST PAIN INPATIENT VISIT TRACKING (12 MO.) No inpatient visits to display in this time frame [email or web address]
[2022-01-14] MEDS ORDERED: BACTRIM DS TAB1 EACH PO (19:38)
== END 2022-01-14 20:24 | disposition home or self-care (01) ==
LOC: ED 17:39
PROC: 0HQGXZZ Repair Left Hand Skin, External Approach (ICD-10-PCS; principal; 2022-01-14)
DX: S61.452A Open bite of left hand, initial encounter (principal); I10 Essential (primary) hypertension; I25.2 Old myocardial infarction; Z23 Encounter for immunization; Z87.891 Personal history of nicotine dependence; Z88.0 Allergy status to penicillin; Z91.040 Latex allergy status; Z88.8 Allergy status to other drugs, medicaments and biological substances; Z88.1 Allergy status to other antibiotic agents; Z79.899 Other long term (current) drug therapy; W54.0XXA Bitten by dog, initial encounter
CPT/HCPCS: 12002; 90471; 90715; 99283-25; A9270

== ENCOUNTER 2022-08-06 17:46 | Emergency (ER) | payer OTHER ==
[~2022-08-06] VITALS: Ht 157.5 cm; Wt 68.0 kg
[~2022-08-06 17:46] MED LIST changes: +BACTRIM DS TAB1 EACH PO; +DESVENLAFAXINE100 M3 PO; +ONDANSETRON ODT4 MG PO; +VANCOMYCIN HCL125 MG PO
--- OUTSIDE RECORDS SUMMARY | 2022-08-06 17:52 | XMS ---
PreManage Notification: MICHAEL GEE Security Marina Sales And Service Supervisor Events No recent Security Events currently on file CRITERIA MET - [facility] - 2 Visits in 30 Days - PDMP CARE PROVIDERS -, Vikas- Dentist: Seasoning Mixer [facility] PHONE: [phone] YULIA WETZEL Physician Associate Manager Affiliate Marketing Current PHONE: Unknown PATY FIGUEROA Internal Medicine 02/04/2019-Current PHONE: Unknown [place]a has no Care Guidelines for this patient. Care History Medical/Surgical 05/16/2019 [facility] Left voice mail to follow up with PCP.\T\nbsp; Next scheduled appointment not until 09/10/2019 02/04/2019 [facility] - Patient is currently established with [facility]. If patient is seen in the ED during business hours. Please contact CHWs at [facility]. Care Recommendation: If this patient has had [...] providing care. E.D. VISIT COUNT (12 MO.) 4 [facility]. TOTAL 4 NOTE: Visits indicate total known visits. ED/UCC VISIT TRACKING (12 MO.) 08/06/2022 17:50 [facility] [place] TYPE: Emergency COMPLAINT: - FLU SYMPTOMS 07/14/2022 12:59 [facility] [place] TYPE: Emergency COMPLAINT: - DIARRHEA, DEHYDRATED, FAST HEART RATE, NAUSEA DIAGNOSES: - Allergy status to other antibiotic agents - Allergy status to other drugs, medicaments and biological substances - Allergy status to penicillin - Allergy status to sulfonamides - Diarrhea, unspecified - Enterocolitis due to Clostridium difficile, not specified as recurrent - Essential (primary) hypertension - Latex allergy status - Old myocardial infarction - Other intermediate manager (current) drug therapy - Personal history of nicotine dependence 01/14/2022 17:40 [facility] [place] TYPE: Emergency COMPLAINT: - LT HAND INJURY DIAGNOSES: - Allergy status to other antibiotic agents - Allergy status to other drugs, medicaments and biological substances - Allergy status to penicillin - Bitten by dog, initial encounter - Encounter for immunization - Essential (primary) hypertension - Latex allergy status - Old myocardial infarction - Open bite of left hand, initial encounter - Other care home (current) drug therapy - Personal history of nicotine dependence 01/10/2022 11:[address] [facility] [place] TYPE: Emergency COMPLAINT: - CHEST PAIN DIAGNOSES: - Allergy status to other antibiotic agents - Allergy status to other drugs, medicaments and biological substances - Allergy status to penicillin - Chest pain, unspecified - Essential (primary) hypertension - Latex allergy status - Old myocardial infarction - Other intermediate manager (current) drug therapy - Personal history of nicotine dependence INPATIENT VISIT TRACKING (12 MO.) No inpatient visits to display in this time frame [id number]
[2022-08-06] MEDS ORDERED: POTASSIUM CHLO20 ME1 PO (19:27)
[2022-08-06] MEDS ORDERED: CHOLESTYRAMINE P4 GM PO (21:20)
[2022-08-06] MEDS ORDERED: ONDANSETRON ODT8 MG PO (21:20)
[2022-08-06 21:42] VITALS: BP 137/99
== END 2022-08-06 21:42 | disposition home or self-care (01) ==
LOC: ED 17:46
DX: K52.9 Noninfective gastroenteritis and colitis, unspecified (principal); I10 Essential (primary) hypertension; I25.2 Old myocardial infarction; Z87.891 Personal history of nicotine dependence; Z88.0 Allergy status to penicillin; Z88.8 Allergy status to other drugs, medicaments and biological substances; Z88.2 Allergy status to sulfonamides; Z88.1 Allergy status to other antibiotic agents; Z91.040 Latex allergy status; Z79.899 Other long term (current) drug therapy
CPT/HCPCS: 36415; 80053; 81001; 85025; 96361; 96374; 96375; 99284-25; A9270; J2270; J2405; J7030

== ENCOUNTER 2022-08-11 13:18 | Emergency (ER) | payer OTHER ==
[~2022-08-11] VITALS: Ht 157.5 cm; Wt 70.6 kg
[~2022-08-11 13:18] MED LIST changes: +CHOLESTYRAMINE P4 GM PO; +ONDANSETRON ODT8 MG PO
--- OUTSIDE RECORDS SUMMARY | 2022-08-11 13:26 | XMS ---
PreManage Notification: MICHAEL GEE Security Real Property Evaluator Events No recent Security Events currently on file CRITERIA MET - [facility] - 2 Visits in 30 Days CARE PROVIDERS -Vikas- Dentist: Type Caster [facility] PHONE: [phone] YULIA WETZEL Physician Hospice Patient Care Secretary Current PHONE: Unknown PATY FIGUEROA Internal Medicine 02/04/2019-Current PHONE: Unknown P[place]a has no Care Guidelines for this patient. Care History Medical/Surgical 05/16/2019 [facility] Left voice mail to follow up with PCP.\T\nbsp; Next scheduled appointment not until 09/10/2019 02/04/2019 [facility] - Patient is currently established with [facility]. If patient is seen in the ED during business hours. Please contact CHWs at [facility]. Care Recommendation: If this patient [...] providing care. E.D. VISIT COUNT (12 MO.) 5 [facility]. TOTAL 5 NOTE: Visits indicate total known visits. ED/UCC VISIT TRACKING (12 MO.) 08/11/2022 13:[address] [facility] [place] TYPE: Emergency COMPLAINT: - RECTAL BLEEDING, DIARRHEA, NAUSEA 08/06/2022 17:50 [facility] TYPE: Emergency COMPLAINT: - FLU SYMPTOMS DIAGNOSES: - Allergy status to other antibiotic agents - Allergy status to other drugs, medicaments and biological substances - Allergy status to penicillin - Allergy status to sulfonamides - Diarrhea, unspecified - Essential (primary) hypertension - Latex allergy status - Noninfective gastroenteritis and colitis, unspecified - Old myocardial infarction - Other exterminator (current) drug therapy - Personal history of nicotine dependence 07/14/2022 12:59 [facility] [place] TYPE: Emergency COMPLAINT: - DIARRHEA, DEHYDRATED, [...] status - Old myocardial infarction - Other fpc (current) drug therapy - Personal history of nicotine dependence 01/14/2022 17:40 [place] TYPE: Emergency [...] of left hand, initial encounter - Other exterminator (current) drug therapy - Personal history of nicotine dependence 01/10/2022 11:27 [place] [place] TYPE: Emergency COMPLAINT: - CHEST PAIN DIAGNOSES: - Allergy status to other antibiotic agents - Allergy status to other drugs, medicaments and biological substances - Allergy status to penicillin - Chest pain, unspecified - Essential (primary) hypertension - Latex allergy status - Old myocardial infarction - Other fpc (current) drug therapy - Personal history of nicotine dependence INPATIENT VISIT TRACKING (12 MO.) No inpatient visits to display in this time frame [email or web address]
[2022-08-11] MEDS ORDERED: ESTRADIOL42.5 GM (14:55)
[2022-08-11] MEDS ORDERED: ONDANSETRON ODT8 MG PO (17:47)
[2022-08-11] MEDS ORDERED: VANCOCIN HCL125 MG PO (17:47)
[2022-08-11 18:21] VITALS: BP 147/105
== END 2022-08-11 18:00 | disposition home or self-care (01) ==
LOC: ED 13:18
DX: K52.9 Noninfective gastroenteritis and colitis, unspecified (principal); I10 Essential (primary) hypertension; I25.2 Old myocardial infarction; Z87.891 Personal history of nicotine dependence; Z88.0 Allergy status to penicillin; Z88.8 Allergy status to other drugs, medicaments and biological substances; Z88.2 Allergy status to sulfonamides; Z88.1 Allergy status to other antibiotic agents; Z91.040 Latex allergy status; Z79.899 Other long term (current) drug therapy
CPT/HCPCS: 36415; 80053; 85025; 87493; 96374; 99284-25; A9270; J2405; J7030

== ENCOUNTER 2022-11-24 23:30 | Emergency (ER) | payer OTHER ==
[~2022-11-24] VITALS: Ht 157.5 cm; Wt 73.8 kg
--- OUTSIDE RECORDS SUMMARY | ~2022-11-24 | XMS | Continuity of Care Document ---
Demographics + + + | Address | [address] | | | [place] [address] | + + + | Preferred Language | Unknown | + + + | Marital Status | | + + + | Amish Affiliation | Unknown | + + + | Race | White | + + + | Ethnic Group | Not or | + + + Author + + + | Author | [facility] | + + + | Organization | [facility] | + + + | Address | [address] | | | [place] [address] | + + + | Phone | | + + + Care Team Providers + + + + | [facility] Specialists Name | Role | Phone | + + + + Unavailable | Unavailable | + + + + Unavailable | Unavailable | + + + + Allergies and Intolerances + + + + + + | date | description | facility | reaction | severity | + + + + + + | (no date) | | [facility] | (no reaction) | (no severity) | | | Sulfamethoxazol | [facility] | | | + + + + + + | (no date) | Trimethoprim | [facility] | (no reaction) | (no severity) | | | | [facility] | | | + + + + + + | (no date) | Latex | [facility] | (no reaction) | (no severity) | | | | [facility] | | | + + + + + + | (no date) | Urticaria | [facility] | (no reaction) | (no severity) | | | | [facility] | | | + + + + + + | (no date) | Latex | [facility] | (no reaction) | (no severity) | | | | [facility] | | | + + + + + + | (no date) | Cephalexin | [facility] | (no reaction) | (no severity) | | | | [facility] | | | + + + + + + | (no date) | Ciprofloxacin | [facility] | (no reaction) | (no severity) | | | | [facility] | | | + + + + + + | (no date) | Rash | [facility] | (no reaction) | (no severity) | | | | [facility] | | | + + + + + + | (no date) | Latex | [facility] | (no reaction) | (no severity) | | | | [facility] | | | + + + + + + | (no date) | Trimethoprim | [facility] | (no reaction) | (no severity) | | | | [facility] | | | + + + + + + | (no date) | | [facility] | (no reaction) | (no severity) | | | Sulfamethoxazol | [facility] | | [facility] | | | + + + + + + | (no date) | Ciprofloxacin | [facility] | (no reaction) | (no severity) | | | | [facility] | | | + + + + + + | (no date) | Losartan | [facility] | (no reaction) | (no severity) | | | | [facility] | | | + + + + + + | (no date) | Cephalexin | [facility] | (no reaction) | (no severity) | | | | [facility] | | | + + + + + + | (no date) | Anaphylaxis | [facility] | (no reaction) | (no severity) | | | | [facility] | | | + + + + + + | (no date) | Vomiting | [facility] | (no reaction) | (no severity) | | | | [facility] | | | + + + + + + | (no date) | Losartan | [facility] | (no reaction) | (no severity) | | | | [facility] | | | + + + + + + | (no date) | Ciprofloxacin | [facility] | (no reaction) | (no severity) | | | | [facility] | | | + + + + + + | (no date) | Penicillin | [facility] | (no reaction) | (no severity) | | | | [facility] | | | + + + + + + | (no date) | Penicillin | [facility] | (no reaction) | (no severity) | | | | [facility] | | | + + + + + + | (no date) | Cephalosporins | [facility] | (no reaction) | (no severity) | | | | [facility] | | | + + + + + + | (no date) | Trimethoprim | [facility] | (no reaction) | (no severity) | | | | [facility] | | | + + + + + + | (no date) | Penicillins | [facility] | (no reaction) | (no severity) | + + + + + + | (no date) | Cephalosporins | [facility] | (no reaction) | (no severity) | | | | | | | + + + + + + | (no date) | cephalexin | [facility] | (no reaction) | (no severity) | + + + + + + | (no date) | | [facility] | (no reaction) | (no severity) | | | sulfamethoxazol | | | | | | e | | | | + + + + + + | (no date) | trimethoprim | [facility] | (no reaction) | (no severity) | + + + + + + | (no date) | ciprofloxacin | [facility] | (no reaction) | (no severity) | + + + + + + | (no date) | losartan | [facility] | (no reaction) | (no severity) | + + + + + + | (no date) | latex | [facility] | (no reaction) | (no severity) | + + + + + + | (no date) | | [facility] | (no reaction) | (no severity) | | | Sulfamethoxazol | [facility] | | | | | e | [facility] | | | + + + + + + | (no date) | Losartan | [facility] | (no reaction) | (no severity) | | | | [facility] | | | + + + + + + | (no date) | Latex | [facility] | (no reaction) | (no severity) | | | | [facility] | | | + + + + + + | (no date) | Cephalosporins | [facility] | (no reaction) | (no severity) | | | | [facility] | | | + + + + + + | (no date) | Penicillin | [facility] | (no reaction) | (no severity) | | | | [facility] | | | + + + + + + | (no date) | Cephalexin | [facility] | (no reaction) | (no severity) | | | | [facility] | | | + + + + + + | (no date) | Penicillin | [facility] | (no reaction) | (no severity) | | | | [facility] | | | + + + + + + Encounters No information. Functional Status No information. Immunizations + + + + | date | description | facility | + + + + | 2022-01-14 00:00 | Tdap | [facility] | + + + + Medications + + + + | date | description | facility | + + + + | 2022-07-14 00:00 | ONDANSETRON | [facility] | + + + + | 2019-02-02 00:00 | PHENAZOPYRIDINE HCL | [facility] | + + + + | 2022-01-10 00:00 | PHENAZOPYRIDINE HCL | [facility] | + + + + | 2022-01-14 00:00 | PHENAZOPYRIDINE HCL | [facility] | + + + + | 2022-07-14 00:00 | PHENAZOPYRIDINE HCL | [facility] | + + + + | 2022-08-06 00:00 | PHENAZOPYRIDINE HCL | [facility] | + + + + | 2022-08-11 00:00 | PHENAZOPYRIDINE HCL | [facility] | + + + + | 2022-01-10 00:00 | POTASSIUM CHLORIDE | [facility] | + + + + | 2022-01-14 00:00 | POTASSIUM CHLORIDE | [facility] | + + + + | 2022-07-14 00:00 | POTASSIUM CHLORIDE | [facility] | + + + + | 2022-08-06 00:00 | POTASSIUM CHLORIDE | [facility] | + + + + | 2022-08-11 00:00 | POTASSIUM CHLORIDE | [facility] | + + + + | 2022-01-10 00:00 | TOPIRAMATE | [facility] | + + + + | 2022-01-14 00:00 | TOPIRAMATE | [facility] | + + + + | 2022-07-14 00:00 | TOPIRAMATE | [facility] | + + + + | 2022-08-06 00:00 | TOPIRAMATE | [facility] | + + + + | 2022-08-11 00:00 | TOPIRAMATE | [facility] | + + + + | 2022-01-10 00:00 | FLUTICASONE PROPIONATE 50 | [facility] | | | [facility] | | + + + + | 2022-01-14 00:00 | FLUTICASONE PROPIONATE 50 | [facility] | | | [facility] | | + + + + | 2022-07-14 00:00 | FLUTICASONE PROPIONATE 50 | [facility] | | | [facility] | | + + + + | 2022-08-06 00:00 | FLUTICASONE PROPIONATE 50 | [facility] | | | [facility] | | + + + + | 2022-08-11 00:00 | FLUTICASONE PROPIONATE 50 | [facility] | | | [facility]CG | | + + + + | 2022-01-10 00:00 | POTASSIUM CHLORIDE | [facility] | + + + + | 2022-01-14 00:00 | POTASSIUM CHLORIDE | [facility] | + + + + | 2022-08-06 00:00 | POTASSIUM CHLORIDE | [facility] | + + + + | 2022-08-11 00:00 | POTASSIUM CHLORIDE | [facility] | + + + + | 2022-07-14 00:00 | Desvenlafaxine Succinate | [facility] | + + + + | 2022-08-06 00:00 | Desvenlafaxine Succinate | [facility] | + + + + | 2022-08-11 00:00 | Desvenlafaxine Succinate | [facility] | + + + + | 2022-01-10 00:00 | IBUPROFEN | [facility] | + + + + | 2022-01-14 00:00 | IBUPROFEN | [facility] | + + + + | 2022-07-14 00:00 | IBUPROFEN | [facility] | + + + + | 2022-01-10 00:00 | Cholecalciferol (Vitamin | [facility] | | | D3) | | + + + + | 2022-01-14 00:00 | Cholecalciferol (Vitamin | [facility] | | | D3) | | + + + + | 2022-07-14 00:00 | Cholecalciferol (Vitamin | [facility] | | | D3) | | + + + + | 2022-08-06 00:00 | Cholecalciferol (Vitamin | [facility] | | | D3) | | + + + + | 2022-08-11 00:00 | Cholecalciferol (Vitamin | [facility] | | | D3) | | + + + + | 2022-08-11 00:00 | VANCOMYCIN HCL | [facility] | + + + + | 2022-08-11 00:00 | Estradiol | [facility] | + + + + | 2022-01-10 00:00 | HYDROCHLOROTHIAZIDE | [facility] | + + + + | 2022-01-14 00:00 | HYDROCHLOROTHIAZIDE | [facility] | + + + + | 2022-07-14 00:00 | HYDROCHLOROTHIAZIDE | [facility] | + + + + | 2022-08-06 00:00 | HYDROCHLOROTHIAZIDE | [facility] | + + + + | 2022-08-11 00:00 | HYDROCHLOROTHIAZIDE | [facility] | + + + + | 2022-08-06 00:00 | ONDANSETRON | [facility] | + + + + | 2022-08-11 00:00 | ONDANSETRON | [facility] | + + + + | 2022-07-14 00:00 | VANCOMYCIN HCL | [facility] | + + + + | 2019-02-02 00:00 | NITROFURANTOIN MONOHYD | [facility] | | | MACROCR | | + + + + | 2022-01-10 00:00 | VARENICLINE TARTRATE | [facility] | + + + + | 2022-01-14 00:00 | VARENICLINE TARTRATE | [facility] | + + + + | 2022-07-14 00:00 | VARENICLINE TARTRATE | [facility] | + + + + | 2022-08-06 00:00 | CHOLESTYRAMINE | [facility] | + + + + | 2022-01-14 00:00 | | [facility] | | | SULFAMETHOXAZOLE/TRIMETHOPR | | | | IM DS | | + + + + | 2022-01-10 00:00 | ZOLPIDEM TARTRATE | [facility] | + + + + | 2022-01-14 00:00 | ZOLPIDEM TARTRATE | [facility] | + + + + | 2022-07-14 00:00 | ZOLPIDEM TARTRATE | [facility] | + + + + | 2022-01-10 00:00 | HYDROCODONE/APAP | [facility] | | | (10-325MG) | | + + + + | 2022-01-14 00:00 | HYDROCODONE/APAP | [facility] | | | (10-325MG) | | + + + + | 2022-07-14 00:00 | HYDROCODONE/APAP | [facility] | | | (10-325MG) | | + + + + | 2022-08-06 00:00 | HYDROCODONE/APAP | [facility] | | | (10-325MG) | | + + + + | 2022-08-11 00:00 | HYDROCODONE/APAP | [facility] | | | (10-325MG) | | + + + + | 2022-01-10 00:00 | LOSARTAN POTASSIUM | [facility] | + + + + | 2022-01-14 00:00 | LOSARTAN POTASSIUM | [facility] | + + + + | 2022-07-14 00:00 | LOSARTAN POTASSIUM | [facility] | + + + + | 2022-08-06 00:00 | LOSARTAN POTASSIUM | [facility] | + + + + | 2022-08-11 00:00 | LOSARTAN POTASSIUM | [facility] | + + + + | 2022-01-10 00:00 | BUPROPION HCL | [facility] | + + + + | 2022-01-14 00:00 | BUPROPION HCL | [facility] | + + + + Problems + + + + | date | description | facility | + + + + | 2017-07-09 00:00 | Nonspecific chest pain | [facility] | + + + + | 2019-02-02 00:00 | Urinary tract infection | [facility] | + + + + | 2019-05-15 00:00 | Bronchitis | [facility] | + + + + | 2022-01-10 00:00 | Chest pain | [facility] | + + + + | 2022-01-14 00:00 | Dog bite | [facility] | + + + + | 2022-03-22 12:51 | CHEST PAIN, UNSPECIFIED | [facility] | + + + + | 2022-06-07 16:07 | SLEEP APNEA, UNSPECIFIED | [facility] | + + + + | 2022-07-14 00:00 | Clostridioides difficile | [facility] | | | diarrhea | | + + + + | 2022-07-14 12:59 | ENTEROCOLITIS D/T | [facility] | | | CLOSTRIDIUM DIFFICILE, NOT | | | | SPCF | | + + + + | 2022-07-14 12:59 | Essential (primary) | [facility] | | | hypertension | | + + + + | 2022-07-14 12:59 | OLD MYOCARDIAL INFARCTION | [facility] | + + + + | 2022-07-14 12:59 | DIARRHEA, UNSPECIFIED | [facility] | + + + + | 2022-07-14 12:59 | 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) | [facility] | | | DRUG THERAPY | | + + + + | 2022-07-14 12:59 | PERSONAL HISTORY OF | [facility] | | | NICOTINE DEPENDENCE | | + + + + | 2022-07-14 12:59 | ALLERGY STATUS TO | [facility] | | | PENICILLIN | | + + + + | 2022-07-14 12:59 | ALLERGY STATUS TO OTHER | [facility] | | | ANTIBIOTIC AGENTS STATUS | | + + + + | 2022-07-14 12:59 | ALLERGY STATUS TO | [facility] | | | SULFONAMIDES STATUS | | + + + + | 2022-07-14 12:59 | ALLERGY STATUS TO OTH | [facility] | | | DRUG/MEDS/BIOL SUBST STATUS | | | | | | + + + + | 2022-07-14 12:59 | LATEX ALLERGY STATUS | [facility] | + + + + | 2022-08-06 00:00 | Gastroenteritis | [facility] | + + + + | 2022-08-06 17:50 | Essential (primary) | [facility] | | | hypertension | | + + + + | 2022-08-06 17:50 | OLD MYOCARDIAL INFARCTION | [facility] | + + + + | 2022-08-06 17:50 | NONINFECTIVE | [facility] | | | GASTROENTERITIS AND | | | | COLITIS, UNSPECIF | | + + + + | 2022-08-06 17:50 | DIARRHEA, UNSPECIFIED | [facility] | + + + + | 2022-08-06 17:50 | 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) | [facility] | | | DRUG THERAPY | | + + + + | 2022-08-06 17:50 | PERSONAL HISTORY OF | [facility] | | | NICOTINE DEPENDENCE | | + + + + | 2022-08-06 17:50 | ALLERGY STATUS TO | [facility] | | | PENICILLIN | | + + + + | 2022-08-06 17:50 | ALLERGY STATUS TO OTHER | [facility] | | | ANTIBIOTIC AGENTS STATUS | | + + + + | 2022-08-06 17:50 | ALLERGY STATUS TO | [facility] | | | SULFONAMIDES STATUS | | + + + + | 2022-08-06 17:50 | ALLERGY STATUS TO OTH | [facility] | | | DRUG/MEDS/BIOL SUBST STATUS | | | | | | + + + + | 2022-08-06 17:50 | LATEX ALLERGY STATUS | [facility] | + + + + | 2022-08-11 00:00 | Acute colitis | [facility] | + + + + | 2022-08-11 13:19 | Essential (primary) | [facility] | | | hypertension | | + + + + | 2022-08-11 13:19 | OLD MYOCARDIAL INFARCTION | [facility] | + + + + | 2022-08-11 13:19 | NONINFECTIVE | [facility] | | | GASTROENTERITIS AND | | | | COLITIS, UNSPECIF | | + + + + | 2022-08-11 13:19 | DIARRHEA, UNSPECIFIED | [facility] | + + + + | 2022-08-11 13:19 | 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) | [facility] | | | DRUG THERAPY | | + + + + | 2022-08-11 13:19 | PERSONAL HISTORY OF | [facility] | | | NICOTINE DEPENDENCE | | + + + + | 2022-08-11 13:19 | ALLERGY STATUS TO | [facility] | | | PENICILLIN | | + + + + | 2022-08-11 13:19 | ALLERGY STATUS TO OTHER | [facility] | | | ANTIBIOTIC AGENTS STATUS | | + + + + | 2022-08-11 13:19 | ALLERGY STATUS TO | [facility] | | | SULFONAMIDES STATUS | | + + + + | 2022-08-11 13:19 | ALLERGY STATUS TO OTH | [facility] | | | DRUG/MEDS/BIOL SUBST STATUS | | | | | | + + + + | 2022-08-11 13:19 | LATEX ALLERGY STATUS | [facility] | + + + + | 2022-09-08 11:27 | PAIN IN LEFT HIP | [facility] | + + + + Procedures No information. Results/Labs +--------+--------+ +---------+--------+---------+ | test | date | facility | value | unit | notes | +--------+--------+ +---------+--------+---------+ + + | Result panel 1 | + + + + + +-------+ + + | | 2022-01-10 | [facility] | 9.9 | (missing) | (missing) | | (unavailable | 11:50 | [facility] | | | | + + + +-------+ + + + + | Result panel 2 | + + + + + +--------+ + + | | 2022-01-10 | [facility] | 4.61 | (missing) | (missing) | | (unavailable | 11:50 | [facility] | | | | + + + +--------+ + + + + | Result panel 3 | + + + + + +--------+ + + | | 2022-01-10 | [facility] | 13.0 | (missing) | (missing) | | (unavailable | 11:50 | [facility] | | | | + + + +--------+ + + + + | Result panel 4 | + + + + + +--------+ + + | | 2022-01-10 | [facility] | 39.9 | (missing) | (missing) | | (unavailable | 11:50 | [facility] | | | | + + + +--------+ + + + + | Result panel 5 | + + + + + +--------+ + + | | 2022-01-10 | [facility] | 86.5 | (missing) | (missing) | | (unavailable | 11:50 | [facility] | | | | + + + +--------+ + + + + | Result panel 6 | + + + + + +--------+ + + | | 2022-01-10 | [facility] | 28.1 | (missing) | (missing) | | (unavailable | 11:50 | [facility] | | | | + + + +--------+ + + + + | Result panel 7 | + + + + + +--------+ + + | | 2022-01-10 | [facility] | 32.5 | (missing) | (missing) | | (unavailable | 11:50 | [facility] | | | | + + + +--------+ + + + + | Result panel 8 | + + + + + +--------+ + + | | 2022-01-10 | [facility] | 13.8 | (missing) | (missing) | | (unavailable | 11:50 | [facility] | | | | + + + +--------+ + + + + | Result panel 9 | + + + + + +-------+ + + | | 2022-01-10 | [facility] | 338 | (missing) | (missing) | | (unavailable | 11:50 | [facility] | | | | + + + +-------+ + + + + | Result panel 10 | + + + + + +--------+ + + | | 2022-01-10 | [facility] | 64.4 | (missing) | (missing) | | (unavailable | 11:50 | [facility] | | | | + + + +--------+ + + + + | Result panel 11 | + + + + + +--------+ + + | | 2022-01-10 | [facility] | 24.4 | (missing) | (missing) | | (unavailable | 11:50 | [facility] | | | | + + + +--------+ + + + + | Result panel 12 | + + + + + +-------+ + + | | 2022-01-10 | [facility] | 6.9 | (missing) | (missing) | | (unavailable | 11:50 | [facility] | | | | + + + +-------+ + + + + | Result panel 13 | + + + + + +-------+ + + | | 2022-01-10 | [facility] | 3.5 | (missing) | (missing) | | (unavailable | 11:50 | [facility] | | | | + + + +-------+ + + + + | Result panel 14 | + + + + + +-------+ + + | | 2022-01-10 | [facility] | 0.8 | (missing) | (missing) | | (unavailable | 11:50 | [facility] | | | | + + + +-------+ + + + + | Result panel 15 | + + + + + +-------+---------+ + | | 2022-01-10 | [facility] | 112 | mg/dL | (missing) | | (unavailable | 11:50 | [facility] | | | | + + + +-------+---------+ + + + | Result panel 16 | + + + + + +------+---------+ + | | 2022-01-10 | [facility] | 13 | mg/dL | (missing) | | (unavailable | 11:50 | [facility] | | | | + + + +------+---------+ + + + | Result panel 17 | + + + + + +--------+---------+ + | | 2022-01-10 | [facility] | 0.94 | mg/dL | (missing) | | (unavailable | 11:50 | [facility] | | | | + + + +--------+---------+ + + + | Result panel 18 | + + + + + +------+ + + | | 2022-01-10 | [facility] | 73 | (missing) | (missing) | | (unavailable | 11:50 | [facility] | | | | + + + +------+ + + + + | Result panel 19 | + + + + + +---------+ + + | | 2022-01-10 | [facility] | 13.82 | (missing) | (missing) | | (unavailable | 11:50 | [facility] | | | | + + + +---------+ + + + + | Result panel 20 | + + + + + +-------+ + + | | 2022-01-10 | [facility] | 142 | (missing) | (missing) | | (unavailable | 11:50 | [facility] | | | | + + + +-------+ + + + + | Result panel 21 | + + + + + +-------+ + + | | 2022-01-10 | [facility] | 3.7 | (missing) | (missing) | | (unavailable | 11:50 | [facility] | | | | + + + +-------+ + + + + | Result panel 22 | + + + + + +-------+ + + | | 2022-01-10 | [facility] | 108 | (missing) | (missing) | | (unavailable | 11:50 | [facility] | | | | + + + +-------+ + + + + | Result panel 23 | + + + + + +------+ + + | | 2022-01-10 | [facility] | 25 | (missing) | (missing) | | (unavailable | 11:50 | [facility] | | | | + + + +------+ + + + + | Result panel 24 | + + + + + +--------+ + + | | 2022-01-10 | [facility] | 12.7 | (missing) | (missing) | | (unavailable | 11:50 | [facility] | | | | + + + +--------+ + + + + | Result panel 25 | + + + + + +-------+---------+ + | | 2022-01-10 | [facility] | 8.4 | mg/dL | (missing) | | (unavailable | 11:50 | [facility] | | | | + + + +-------+---------+ + + + | Result panel 26 | + + + + + +-------+---------+ + | | 2022-01-10 | [facility] | 1.7 | mg/dL | (missing) | | (unavailable | 11:50 | [facility] | | | | + + + +-------+---------+ + + + | Result panel 27 | + + + + + +-------+ + + | | 2022-01-10 | [facility] | 6.8 | (missing) | (missing) | | (unavailable | 11:50 | [facility] | | | | + + + +-------+ + + + + | Result panel 28 | + + + + + +-------+ + + | | 2022-01-10 | [facility] | 3.7 | (missing) | (missing) | | (unavailable | 11:50 | [facility] | | | | + + + +-------+ + + + + | Result panel 29 | + + + + + +-------+ + + | | 2022-01-10 | [facility] | 3.1 | (missing) | (missing) | | (unavailable | 11:50 | [facility] | | | | + + + +-------+ + + + + | Result panel 30 | + + + + + +--------+ + + | | 2022-01-10 | [facility] | 1.19 | (missing) | (missing) | | (unavailable | 11:50 | [facility] | | | | + + + +--------+ + + + + | Result panel 31 | + + + + + +-------+ + + | | 2022-01-10 | [facility] | 0.3 | (missing) | (missing) | | (unavailable | 11:50 | [facility] | | | | + + + +-------+ + + + + | Result panel 32 | + + + + + +------+ + + | | 2022-01-10 | [facility] | 14 | (missing) | (missing) | | (unavailable | 11:50 | [facility] | | | | + + + +------+ + + + + | Result panel 33 | + + + + + +------+ + + | | 2022-01-10 | [facility] | 34 | (missing) | (missing) | | (unavailable | 11:50 | [facility] | | | | + + + +------+ + + + + | Result panel 34 | + + + + + +-------+ + + | | 2022-01-10 | [facility] | 114 | (missing) | (missing) | | (unavailable | 11:50 | [facility] | | | | + + + +-------+ + + + + | Result panel 35 | + + + + + +-------+ + + | | 2022-01-10 | [facility] | 9.9 | (missing) | (missing) | | (unavailable | 11:50 | [facility] | | | | + + + +-------+ + + + + | Result panel 36 | + + + + + +--------+ + + | | 2022-01-10 | [facility] | 4.61 | (missing) | (missing) | | (unavailable | 11:50 | [facility] | | | | + + + +--------+ + + + + | Result panel 37 | + + + + + +--------+ + + | | 2022-01-10 | [facility] | 13.0 | (missing) | (missing) | | (unavailable | 11:50 | [facility] | | | | + + + +--------+ + + + + | Result panel 38 | + + + + + +--------+ + + | | 2022-01-10 | [facility] | 39.9 | (missing) | (missing) | | (unavailable | 11:50 | [facility] | | | | + + + +--------+ + + + + | Result panel 39 | + + + + + +--------+ + + | | 2022-01-10 | [facility] | 86.5 | (missing) | (missing) | | (unavailable | 11:50 | [facility] | | | | + + + +--------+ + + + + | Result panel 40 | + + + + + +--------+ + + | | 2022-01-10 | [facility] | 28.1 | (missing) | (missing) | | (unavailable | 11:50 | [facility] | | | | + + + +--------+ + + + + | Result panel 41 | + + + + + +--------+ + + | | 2022-01-10 | [facility] | 32.5 | (missing) | (missing) | | (unavailable | 11:50 | [facility] | | | | + + + +--------+ + + + + | Result panel 42 | + + + + + +--------+ + + | | 2022-01-10 | [facility] | 13.8 | (missing) | (missing) | | (unavailable | 11:50 | [facility] | | | | + + + +--------+ + + + + | Result panel 43 | + + + + + +-------+ + + | | 2022-01-10 | [facility] | 338 | (missing) | (missing) | | (unavailable | 11:50 | [facility] | | | | + + + +-------+ + + + + | Result panel 44 | + + + + + +--------+ + + | | 2022-01-10 | [facility] | 64.4 | (missing) | (missing) | | (unavailable | 11:50 | [facility] | | | | + + + +--------+ + + + + | Result panel 45 | + + + + + +--------+ + + | | 2022-01-10 | [facility] | 24.4 | (missing) | (missing) | | (unavailable | 11:50 | [facility] | | | | + + + +--------+ + + + + | Result panel 46 | + + + + + +-------+ + + | | 2022-01-10 | [facility] | 6.9 | (missing) | (missing) | | (unavailable | 11:50 | [facility] | | | | + + + +-------+ + + + + | Result panel 47 | + + + + + +-------+ + + | | 2022-01-10 | [facility] | 3.5 | (missing) | (missing) | | (unavailable | 11:50 | [facility] | | | | + + + +-------+ + + + + | Result panel 48 | + + + + + +-------+ + + | | 2022-01-10 | [facility] | 0.8 | (missing) | (missing) | | (unavailable | 11:50 | [facility] | | | | + + + +-------+ + + + + | Result panel 49 | + + + + + +-------+---------+ + | | 2022-01-10 | [facility] | 112 | mg/dL | (missing) | | (unavailable | 11:50 | [facility] | | | | + + + +-------+---------+ + + + | Result panel 50 | + + + + + +------+---------+ + | | 2022-01-10 | [facility] | 13 | mg/dL | (missing) | | (unavailable | 11:50 | [facility] | | | | + + + +------+---------+ + + + | Result panel 51 | + + + + + +--------+---------+ + | | 2022-01-10 | [facility] | 0.94 | mg/dL | (missing) | | (unavailable | 11:50 | [facility] | | | | + + + +--------+---------+ + + + | Result panel 52 | + + + + + +------+ + + | | 2022-01-10 | [facility] | 73 | (missing) | (missing) | | (unavailable | 11:50 | [facility] | | | | + + + +------+ + + + + | Result panel 53 | + + + + + +---------+ + + | | 2022-01-10 | [facility] | 13.82 | (missing) | (missing) | | (unavailable | 11:50 | [facility] | | | | + + + +---------+ + + + + | Result panel 54 | + + + + + +-------+ + + | | 2022-01-10 | [facility] | 142 | (missing) | (missing) | | (unavailable | 11:50 | [facility] | | | | + + + +-------+ + + + + | Result panel 55 | + + + + + +-------+ + + | | 2022-01-10 | [facility] | 3.7 | (missing) | (missing) | | (unavailable | 11:50 | [facility] | | | | + + + +-------+ + + + + | Result panel 56 | + + + + + +-------+ + + | | 2022-01-10 | [facility] | 108 | (missing) | (missing) | | (unavailable | 11:50 | [facility] | | | | + + + +-------+ + + + + | Result panel 57 | + + + + + +------+ + + | | 2022-01-10 | [facility] | 25 | (missing) | (missing) | | (unavailable | 11:50 | [facility] | | | | + + + +------+ + + + + | Result panel 58 | + + + + + +--------+ + + | | 2022-01-10 | [facility] | 12.7 | (missing) | (missing) | | (unavailable | 11:50 | [facility] | | | | + + + +--------+ + + + + | Result panel 59 | + + + + + +-------+---------+ + | | 2022-01-10 | [facility] | 8.4 | mg/dL | (missing) | | (unavailable | 11:50 | [facility] | | | | + + + +-------+---------+ + + + | Result panel 60 | + + + + + +-------+---------+ + | | 2022-01-10 | [facility] | 1.7 | mg/dL | (missing) | | (unavailable | 11:50 | [facility] | | | | + + + +-------+---------+ + + + | Result panel 61 | + + + + + +-------+ + + | | 2022-01-10 | [facility] | 6.8 | (missing) | (missing) | | (unavailable | 11:50 | [facility] | | | | + + + +-------+ + + + + | Result panel 62 | + + + + + +-------+ + + | | 2022-01-10 | [facility] | 3.7 | (missing) | (missing) | | (unavailable | 11:50 | [facility] | | | | + + + +-------+ + + + + | Result panel 63 | + + + + + +-------+ + + | | 2022-01-10 | [facility] | 3.1 | (missing) | (missing) | | (unavailable | 11:50 | [facility] | | | | + + + +-------+ + + + + | Result panel 64 | + + + + + +--------+ + + | | 2022-01-10 | [facility] | 1.19 | (missing) | (missing) | | (unavailable | 11:50 | [facility] | | | | + + + +--------+ + + + + | Result panel 65 | + + + + + +-------+ + + | | 2022-01-10 | [facility] | 0.3 | (missing) | (missing) | | (unavailable | 11:50 | [facility] | | | | + + + +-------+ + + + + | Result panel 66 | + + + + + +------+ + + | | 2022-01-10 | [facility] | 14 | (missing) | (missing) | | (unavailable | 11:50 | [facility] | | | | + + + +------+ + + + + | Result panel 67 | + + + + + +------+ + + | | 2022-01-10 | [facility] | 34 | (missing) | (missing) | | (unavailable | 11:50 | [facility] | | | | + + + +------+ + + + + | Result panel 68 | + + + + + +-------+ + + | | 2022-01-10 | [facility] | 114 | (missing) | (missing) | | (unavailable | 11:50 | [facility] | | | | + + + +-------+ + + + + | Result panel 69 | + + + + + +-------+ + + | | 2022-01-10 | [facility] | 6.9 | (missing) | (missing) | | (unavailable | 14:06 | [facility] | | | | + + + +-------+ + + + + | Result panel 70 | + + + + + +-------+ + + | | 2022-01-10 | [facility] | 6.9 | (missing) | (missing) | | (unavailable | 14:06 | [facility] | | | | + + + +-------+ + + + + | Result panel 71 | + + + + + +--------+ + + | | 2022-07-14 | [facility] | 12.7 | (missing) | (missing) | | (unavailable | 16:00:07 | [facility] | | | | + + + +--------+ + + + + | Result panel 72 | + + + + + +--------+ + + | | 2022-07-14 | [facility] | 5.30 | (missing) | (missing) | | (unavailable | 16:00:07 | [facility] | | | | + + + +--------+ + + + + | Result panel 73 | + + + + + +--------+ + + | | 2022-07-14 | [facility] | 14.8 | (missing) | (missing) | | (unavailable | 16:00:07 | [facility] | | | | + + + +--------+ + + + + | Result panel 74 | + + + + + +--------+ + + | | 2022-07-14 | [facility] | 44.1 | (missing) | (missing) | | (unavailable | 16:00:07 | [facility] | | | | + + + +--------+ + + + + | Result panel 75 | + + + + + +--------+ + + | | 2022-07-14 | [facility] | 83.2 | (missing) | (missing) | | (unavailable | 16:00:07 | [facility] | | | | + + + +--------+ + + + + | Result panel 76 | + + + + + +--------+ + + | | 2022-07-14 | [facility] | 27.9 | (missing) | (missing) | | (unavailable | 16:00:07 | [facility] | | | | + + + +--------+ + + + + | Result panel 77 | + + + + + +--------+ + + | | 2022-07-14 | [facility] | 33.6 | (missing) | (missing) | | (unavailable | 16:00:07 | [facility] | | | | + + + +--------+ + + + + | Result panel 78 | + + + + + +--------+ + + | | 2022-07-14 | [facility] | 13.9 | (missing) | (missing) | | (unavailable | 16:00:07 | [facility] | | | | + + + +--------+ + + + + | Result panel 79 | + + + + + +-------+ + + | | 2022-07-14 | [facility] | 310 | (missing) | (missing) | | (unavailable | 16:00:07 | [facility] | | | | + + + +-------+ + + + + | Result panel 80 | + + + + + +--------+ + + | | 2022-07-14 | [facility] | 81.8 | (missing) | (missing) | | (unavailable | 16:00:07 | [facility] | | | | + + + +--------+ + + + + | Result panel 81 | + + + + + +--------+ + + | | 2022-07-14 | [facility] | 12.1 | (missing) | (missing) | | (unavailable | 16:00:07 | [facility] | | | | + + + +--------+ + + + + | Result panel 82 | + + + + + +-------+ + + | | 2022-07-14 | [facility] | 5.7 | (missing) | (missing) | | (unavailable | 16:00:07 | [facility] | | | | + + + +-------+ + + + + | Result panel 83 | + + + + + +-------+ + + | | 2022-07-14 | [facility] | 0.3 | (missing) | (missing) | | (unavailable | 16:00:07 | [facility] | | | | + + + +-------+ + + + + | Result panel 84 | + + + + + +-------+ + + | | 2022-07-14 | [facility] | 0.1 | (missing) | (missing) | | (unavailable | 16:00:07 | [facility] | | | | + + + +-------+ + + + + | Result panel 85 | + + + + + +-------+---------+ + | | 2022-07-14 | [facility] | 113 | mg/dL | (missing) | | (unavailable | : | [facility] | | | | + + + +-------+---------+ + + + | Result panel 86 | + + + + + +------+---------+ + | | 2022-07-14 | [facility] | 24 | mg/dL | (missing) | | (unavailable | 16:00:07 | [facility] | | | | + + + +------+---------+ + + + | Result panel 87 | + + + + + +--------+---------+ + | | 2022-07-14 | [facility] | 0.89 | mg/dL | (missing) | | (unavailable | 16:00:07 | [facility] | | | | + + + +--------+---------+ + + + | Result panel 88 | + + + + + +------+ + + | | 2022-07-14 | [facility] | 78 | (missing) | (missing) | | (unavailable | 16:00:07 | [facility] | | | | + + + +------+ + + + + | Result panel 89 | + + + + + +---------+ + + | | 2022-07-14 | [facility] | 26.96 | (missing) | (missing) | | (unavailable | 16:00:07 | [facility] | | | | + + + +---------+ + + + + | Result panel 90 | + + + + + +-------+ + + | | 2022-07-14 | [facility] | 133 | (missing) | (missing) | | (unavailable | 16:00:07 | [facility] | | | | + + + +-------+ + + + + | Result panel 91 | + + + + + +-------+ + + | | 2022-07-14 | [facility] | 2.9 | (missing) | (missing) | | (unavailable | 16:00:07 | [facility] | | | | + + + +-------+ + + + + | Result panel 92 | + + + + + +------+ + + | | 2022-07-14 | [facility] | 94 | (missing) | (missing) | | (unavailable | 16:00:07 | [facility] | | | | + + + +------+ + + + + | Result panel 93 | + + + + + +------+ + + | | 2022-07-14 | [facility] | 25 | (missing) | (missing) | | (unavailable | 16:00:07 | [facility] | | | | + + + +------+ + + + + | Result panel 94 | + + + + + +--------+ + + | | 2022-07-14 | [facility] | 16.9 | (missing) | (missing) | | (unavailable | 16:00:07 | [facility] | | | | + + + +--------+ + + + + | Result panel 95 | + + + + + +-------+---------+ + | | 2022-07-14 | [facility] | 9.5 | mg/dL | (missing) | | (unavailable | 16:00:07 | [facility] | | | | + + + +-------+---------+ + + + | Result panel 96 | + + + + + +-------+---------+ + | | 2022-07-14 | [facility] | 2.6 | mg/dL | (missing) | | (unavailable | 16:00:07 | [facility] | | | | + + + +-------+---------+ + + + | Result panel 97 | + + + + + +-------+ + + | | 2022-07-14 | [facility] | 8.2 | (missing) | (missing) | | (unavailable | 16:00:07 | [facility] | | | | + + + +-------+ + + + + | Result panel 98 | + + + + + +-------+ + + | | 2022-07-14 | [facility] | 4.0 | (missing) | (missing) | | (unavailable | 16:00:07 | [facility] | | | | + + + +-------+ + + + + | Result panel 99 | + + + + + +-------+ + + | | 2022-07-14 | [facility] | 4.2 | (missing) | (missing) | | (unavailable | 16:00:07 | [facility] | | | | + + + +-------+ + + + + | Result panel 100 | + + + + + +--------+ + + | | 2022-07-14 | [facility] | 0.95 | (missing) | (missing) | | (unavailable | 16:00:07 | [facility] | | | | + + + +--------+ + + + + | Result panel 101 | + + + + + +-------+ + + | | 2022-07-14 | [facility] | 0.4 | (missing) | (missing) | | (unavailable | 16:00:07 | [facility] | | | | + + + +-------+ + + + + | Result panel 102 | + + + + + +------+ + + | | 2022-07-14 | [facility] | 49 | (missing) | (missing) | | (unavailable | 16::07 | [facility] | | | | + + + +------+ + + + + | Result panel 103 | + + + + + +------+ + + | | 2022-07-14 | [facility] | 95 | (missing) | (missing) | | (unavailable | 16:00:07 | [facility] | | | | + + + +------+ + + + + | Result panel 104 | + + + + + +-------+ + + | | 2022-07-14 | [facility] | 121 | (missing) | (missing) | | (unavailable | 16::07 | [facility] | | | | + + + +-------+ + + + + | Result panel 105 | + + + + + +-------+---------+ + | | 2022-07-14 | [facility] | 2.6 | mg/dL | (missing) | | (unavailable | 16:00:07 | [facility] | | | | + + + +-------+---------+ + + + | Result panel 106 | + + + + + +-------+---------+ + | | 2022-07-14 | [facility] | 2.6 | mg/dL | (missing) | | (unavailable | 16::07 | [facility] | | | | + + + +-------+---------+ + + + | Result panel 107 | + + + + + +---------+ + + | | 2022-07-14 | [facility] | Stool | (missing) | (missing) | | (unavailable | 16:05:07 | [facility] | | | | + + + +---------+ + + + + | Result panel 108 | + + + + + + + + + | | 2022-07-14 | [facility] | Detected | (missing) | (missing) | | (unavailable | 16::07 | [facility] | | | | + + + + + + + + + | Result panel 109 | + + + + + +---------+ + + | | 2022-07-14 | [facility] | Stool | (missing) | (missing) | | (unavailable | 16::07 | [facility] | | | | + + + +---------+ + + + + | Result panel 110 | + + + + + + + + + | | 2022-07-14 | [facility] | Detected | (missing) | (missing) | | (unavailable | 16:05:07 | [facility] | | | | + + + + + + + + + | Result panel 111 | + + + + + +--------+ + + | | 2022-07-14 | [facility] | RARE | (missing) | (missing) | | (unavailable | 17:25:07 | [facility] | | | | + + + +--------+ + + + + | Result panel 112 | + + + + + + + + + | | 2022-07-14 | [facility] | YELLOW | (missing) | (missing) | | (unavailable | 17:25:07 | [facility] | | | | + + + + + + + + + | Result panel 113 | + + + + + +---------+ + + | | 2022-07-14 | [facility] | CLEAR | (missing) | (missing) | | (unavailable | 17:25:07 | [facility] | | | | + + + +---------+ + + + + | Result panel 114 | + + + + + + + + + | | 2022-07-14 | [facility] | NEGATIVE | (missing) | (missing) | | (unavailable | 17:25:07 | [facility] | | | | + + + + + + + + + | Result panel 115 | + + + + + + + + + | | 2022-07-14 | [facility] | NEGATIVE | (missing) | (missing) | | (unavailable | 17:25:07 | [facility] | | | | + + + + + + + + + | Result panel 116 | + + + + + +---------+ + + | | 2022-07-14 | [facility] | SMALL | (missing) | (missing) | | (unavailable | 17:25:07 | [facility] | | | | + + + +---------+ + + + + | Result panel 117 | + + + + + +---------+ + + | | 2022-07-14 | [facility] | 1.010 | (missing) | (missing) | | (unavailable | 17:25:07 | [facility] | | | | + + + +---------+ + + + + | Result panel 118 | + + + + + +---------+ + + | | 2022-07-14 | [facility] | SMALL | (missing) | (missing) | | (unavailable | 17:25:07 | [facility] | | | | + + + +---------+ + + + + | Result panel 119 | + + + + + +-------+ + + | | 2022-07-14 | [facility] | 6.0 | (missing) | (missing) | | (unavailable | 17:25:07 | [facility] | | | | + + + +-------+ + + + + | Result panel 120 | + + + + + + + + + | | 2022-07-14 | [facility] | NEGATIVE | (missing) | (missing) | | (unavailable | 17:25:07 | [facility] | | | | + + + + + + + + + | Result panel 121 | + + + + + + + + + | | 2022-07-14 | [facility] | NORMAL | (missing) | (missing) | | (unavailable | 17:25:07 | [facility] | | | | + + + + + + + + + | Result panel 122 | + + + + + + + + + | | 2022-07-14 | [facility] | NEGATIVE | (missing) | (missing) | | (unavailable | 17:25:07 | [facility] | | | | + + + + + + + + + | Result panel 123 | + + + + + +---------+ + + | | 2022-07-14 | [facility] | TRACE | (missing) | (missing) | | (unavailable | 17:25:07 | [facility] | | | | + + + +---------+ + + + + | Result panel 124 | + + + + + +-------+ + + | | 2022-07-14 | [facility] | 2-3 | (missing) | (missing) | | (unavailable | 17:25:07 | [facility] | | | | + + + +-------+ + + + + | Result panel 125 | + + + + + +--------+ + + | | 2022-07-14 | [facility] | 7-11 | (missing) | (missing) | | (unavailable | 17:25:07 | [facility] | | | | + + + +--------+ + + + + | Result panel 126 | + + + + + + + + + | | 2022-07-14 | [facility] | SQUAMOUS 1+ | (missing) | (missing) | | (unavailable | 17:25:07 | [facility] | | | | + + + + + + + + + | Result panel 127 | + + + + + +--------+ + + | | 2022-07-14 | [facility] | RARE | (missing) | (missing) | | (unavailable | 17:25:07 | [facility] | | | | + + + +--------+ + + + + | Result panel 128 | + + + + + + + + + | | 2022-07-14 | [facility] | NONE SEEN | (missing) | (missing) | | (unavailable | 17:25:07 | [facility] | | | | + + + + + + + + + | Result panel 129 | + + + + + +-------+ + + | | 2022-07-14 | [facility] | Yes | (missing) | (missing) | | (unavailable | 17:25:07 | [facility] | | | | + + + +-------+ + + + + | Result panel 130 | + + + + + + + + + | | 2022-07-14 | [facility] | CLEAN CATCH | (missing) | (missing) | | (unavailable | 17:25:07 | [facility] | | | | + + + + + + + + + | Result panel 131 | + + + + + + + + + | | 2022-07-14 | [facility] | NONE SEEN | (missing) | (missing) | | (unavailable | 17::07 | [facility] | | | | + + + + + + + + + | Result panel 132 | + + + + + + + + + | | 2022-07-14 | [facility] | CLEAN CATCH | (missing) | (missing) | | (unavailable | 17::07 | [facility] | | | | + + + + + + + + + | Result panel 133 | + + + + + +--------+ + + | | 2022-07-14 | [facility] | RARE | (missing) | (missing) | | (unavailable | 17:25:07 | [facility] | | | | + + + +--------+ + + + + | Result panel 134 | + + + + + + + + + | | 2022-07-14 | [facility] | NONE SEEN | (missing) | (missing) | | (unavailable | 17:25:07 | [facility] | | | | + + + + + + + + + | Result panel 135 | + + + + + + + + + | | 2022-07-14 | [facility] | CLEAN CATCH | (missing) | (missing) | | (unavailable | 17:25:07 | [facility] | | | | + + + + + + + + + | Result panel 136 | + + + + + +--------+ + + | | 2022-08-06 | [facility] | 44.6 | (missing) | (missing) | | (unavailable | 19:38:07 | [facility] | | | | + + + +--------+ + + + + | Result panel 137 | + + + + + +-------+ + + | | 2022-08-06 | [facility] | 0.1 | (missing) | (missing) | | (unavailable | 19:38:07 | [facility] | | | | + + + +-------+ + + + + | Result panel 138 | + + + + + +--------+ + + | | 2022-08-06 | [facility] | 85.3 | (missing) | (missing) | | (unavailable | 19:38:07 | [facility] | | | | + + + +--------+ + + + + | Result panel 139 | + + + + + +--------+ + + | | 2022-08-06 | [facility] | 27.5 | (missing) | (missing) | | (unavailable | 19:38:07 | [facility] | | | | + + + +--------+ + + + + | Result panel 140 | + + + + + +--------+ + + | | 2022-08-06 | [facility] | 32.3 | (missing) | (missing) | | (unavailable | 19:38:07 | [facility] | | | | + + + +--------+ + + + + | Result panel 141 | + + + + + +--------+ + + | | 2022-08-06 | [facility] | 14.2 | (missing) | (missing) | | (unavailable | 19:38:07 | [facility] | | | | + + + +--------+ + + + + | Result panel 142 | + + + + + +-------+ + + | | 2022-08-06 | [facility] | 417 | (missing) | (missing) | | (unavailable | 19:38:07 | [facility] | | | | + + + +-------+ + + + + | Result panel 143 | + + + + + +--------+ + + | | 2022-08-06 | [facility] | 91.4 | (missing) | (missing) | | (unavailable | 19:38:07 | [facility] | | | | + + + +--------+ + + + + | Result panel 144 | + + + + + +-------+ + + | | 2022-08-06 | [facility] | 2.4 | (missing) | (missing) | | (unavailable | 19:38:07 | [facility] | | | | + + + +-------+ + + + + | Result panel 145 | + + + + + +-------+ + + | | 2022-08-06 | [facility] | 6.1 | (missing) | (missing) | | (unavailable | 19:38:07 | [facility] | | | | + + + +-------+ + + + + | Result panel 146 | + + + + + +-------+ + + | | 2022-08-06 | [facility] | 0.0 | (missing) | (missing) | | (unavailable | 19:38:07 | [facility] | | | | + + + +-------+ + + + + | Result panel 147 | + + + + + +-------+ + + | | 2022-08-06 | [facility] | 0.1 | (missing) | (missing) | | (unavailable | 19:38:07 | [facility] | | | | + + + +-------+ + + + + | Result panel 148 | + + + + + +-------+---------+ + | | 2022-08-06 | [facility] | 143 | mg/dL | (missing) | | (unavailable | 19:38:07 | [facility] | | | | + + + +-------+---------+ + + + | Result panel 149 | + + + + + +------+---------+ + | | 2022-08-06 | [facility] | 13 | mg/dL | (missing) | | (unavailable | :38:07 | [facility] | | | | + + + +------+---------+ + + + | Result panel 150 | + + + + + +--------+---------+ + | | 2022-08-06 | [facility] | 0.98 | mg/dL | (missing) | | (unavailable | 19:38:07 | [facility] | | | | + + + +--------+---------+ + + + | Result panel 151 | + + + + + +------+ + + | | 2022-08-06 | [facility] | 70 | (missing) | (missing) | | (unavailable | 19:38:07 | [facility] | | | | + + + +------+ + + + + | Result panel 152 | + + + + + +---------+ + + | | 2022-08-06 | [facility] | 13.26 | (missing) | (missing) | | (unavailable | 19:38:07 | [facility] | | | | + + + +---------+ + + + + | Result panel 153 | + + + + + +-------+ + + | | 2022-08-06 | [facility] | 136 | (missing) | (missing) | | (unavailable | 19:38:07 | [facility] | | | | + + + +-------+ + + + + | Result panel 154 | + + + + + +-------+ + + | | 2022-08-06 | [facility] | 3.1 | (missing) | (missing) | | (unavailable | 19:38:07 | [facility] | | | | + + + +-------+ + + + + | Result panel 155 | + + + + + +------+ + + | | 2022-08-06 | [facility] | 99 | (missing) | (missing) | | (unavailable | 19:38:07 | [facility] | [facility] | | [facility] | | | | + + + +------+ + + + + | Result panel 156 | + + + + + +------+ + + | | 2022-08-06 | [facility] | 22 | (missing) | (missing) | | (unavailable | 19:38:07 | [facility] | | [facility] | | | | + + + +------+ + + + + | Result panel 157 | + + + + + +--------+ + + | | 2022-08-06 | [facility] | 18.1 | (missing) | (missing) | | (unavailable | 19:38:07 | [facility] | [facility] | | | | + + + +--------+ + + + + | Result panel 158 | + + + + + +-------+---------+ + | | 2022-08-06 | [facility] | 9.0 | mg/dL | (missing) | | (unavailable | 19:38:07 | [facility] | | | | + + + +-------+---------+ + + + | Result panel 159 | + + + + + +-------+ + + | | 2022-08-06 | [facility] | 8.0 | (missing) | (missing) | | (unavailable | 19:38:07 | [facility] | | | | + + + +-------+ + + + + | Result panel 160 | + + + + + +-------+ + + | | 2022-08-06 | [facility] | 4.4 | (missing) | (missing) | | (unavailable | 19:38:07 | [facility] | | | | + + + +-------+ + + + + | Result panel 161 | + + + + + +-------+ + + | | 2022-08-06 | [facility] | 3.6 | (missing) | (missing) | | (unavailable | 19:38:07 | [facility] | | | | + + + +-------+ + + + + | Result panel 162 | + + + + + +--------+ + + | | 2022-08-06 | [facility] | 1.22 | (missing) | (missing) | | (unavailable | 19:38:07 | [facility] | | | | + + + +--------+ + + + + | Result panel 163 | + + + + + +-------+ + + | | 2022-08-06 | [facility] | 0.5 | (missing) | (missing) | | (unavailable | 19:38:07 | [facility] | | | | + + + +-------+ + + + + | Result panel 164 | + + + + + +------+ + + | | 2022-08-06 | [facility] | 36 | (missing) | (missing) | | (unavailable | 19:38:07 | [facility] | | | | + + + +------+ + + + + | Result panel 165 | + + + + + +------+ + + | | 2022-08-06 | [facility] | 73 | (missing) | (missing) | | (unavailable | 19:38:07 | [facility] | | | | + + + +------+ + + + + | Result panel 166 | + + + + + +-------+ + + | | 2022-08-06 | [facility] | 128 | (missing) | (missing) | | (unavailable | 19:38:07 | [facility] | | | | + + + +-------+ + + + + | Result panel 167 | + + + + + +--------+ + + | | 2022-08-06 | [facility] | 20.9 | (missing) | (missing) | | (unavailable | 19:38:07 | [facility] | [facility] | | | | + + + +--------+ + + + + | Result panel 168 | + + + + + +--------+ + + | | 2022-08-06 | [facility] | 5.23 | (missing) | (missing) | | (unavailable | 19:38:07 | [facility] | [facility] | | | | + + + +--------+ + + + + | Result panel 169 | + + + + + +--------+ + + | | 2022-08-06 | [facility] | 14.4 | (missing) | (missing) | | (unavailable | 19:38:07 | [facility] | | | | + + + +--------+ + + + + | Result panel 170 | + + + + + +--------+ + + | | 2022-08-06 | [facility] | 91.4 | (missing) | (missing) | | (unavailable | 19:38:07 | [facility] | | | | + + + +--------+ + + + + | Result panel 171 | + + + + + +-------+ + + | | 2022-08-06 | [facility] | 2.4 | (missing) | (missing) | | (unavailable | 19:38:07 | [facility] | | | | + + + +-------+ + + + + | Result panel 172 | + + + + + +-------+ + + | | 2022-08-06 | [facility] | 6.1 | (missing) | (missing) | | (unavailable | 19:38:07 | [facility] | | [facility] | | | | + + + +-------+ + + + + | Result panel 173 | + + + + + +-------+ + + | | 2022-08-06 | [facility] | 0.0 | (missing) | (missing) | | (unavailable | 19:38:07 | [facility] | | | | + + + +-------+ + + + + | Result panel 174 | + + + + + + + + + | | 2022-08-06 | [facility] | YELLOW | (missing) | (missing) | | (unavailable | 20:45:07 | [facility] | | | | + + + + + + + + + | Result panel 175 | + + + + + +---------+ + + | | 2022-08-06 | [facility] | CLEAR | (missing) | (missing) | | (unavailable | 20:45:07 | [facility] | | | | + + + +---------+ + + + + | Result panel 176 | + + + + + + + + + | | 2022-08-06 | [facility] | NEGATIVE | (missing) | (missing) | | (unavailable | 20:45:07 | [facility] | | | | + + + + + + + + + | Result panel 177 | + + + + + + + + + | | 2022-08-06 | [facility] | NEGATIVE | (missing) | (missing) | | (unavailable | 20:45:07 | [facility] | | | | + + + + + + + + + | Result panel 178 | + + + + + +---------+ + + | | 2022-08-06 | [facility] | TRACE | (missing) | (missing) | | (unavailable | 20:45:07 | [facility] | | | | + + + +---------+ + + + + | Result panel 179 | + + + + + +---------+ + + | | 2022-08-06 | [facility] | 1.020 | (missing) | (missing) | | (unavailable | 20:45:07 | [facility] | | | | + + + +---------+ + + + + | Result panel 180 | + + + + + +---------+ + + | | 2022-08-06 | [facility] | SMALL | (missing) | (missing) | | (unavailable | 20:45:07 | [facility] | | | | + + + +---------+ + + + + | Result panel 181 | + + + + + +-------+ + + | | 2022-08-06 | [facility] | 6.5 | (missing) | (missing) | | (unavailable | 20:45:07 | [facility] | | | | + + + +-------+ + + + + | Result panel 182 | + + + + + + + + + | | 2022-08-06 | [facility] | NEGATIVE | (missing) | (missing) | | (unavailable | 20:45:07 | [facility] | | | | + + + + + + + + + | Result panel 183 | + + + + + + + + + | | 2022-08-06 | [facility] | NORMAL | (missing) | (missing) | | (unavailable | 20:45:07 | [facility] | | | | + + + + + + + + + | Result panel 184 | + + + + + + + + + | | 2022-08-06 | [facility] | NEGATIVE | (missing) | (missing) | | (unavailable | 20:45:07 | [facility] | | | | + + + + + + + + + | Result panel 185 | + + + + + +---------+ + + | | 2022-08-06 | [facility] | SMALL | (missing) | (missing) | | (unavailable | 20:45:07 | [facility] | | | | + + + +---------+ + + + + | Result panel 186 | + + + + + +-------+ + + | | 2022-08-06 | [facility] | 4-6 | (missing) | (missing) | | (unavailable | 20:45:07 | [facility] | | | | + + + +-------+ + + + + | Result panel 187 | + + + + + +--------+ + + | | 2022-08-06 | [facility] | 7-11 | (missing) | (missing) | | (unavailable | 20:45:07 | [facility] | | | | + + + +--------+ + + + + | Result panel 188 | + + + + + + + + + | | 2022-08-06 | [facility] | SQUAMOUS 3+ | (missing) | (missing) | | (unavailable | 20:45:07 | [facility] | | | | + + + + + + + + + | Result panel 189 | + + + + + +------+ + + | | 2022-08-06 | [facility] | No | (missing) | (missing) | | (unavailable | 20:45:07 | [facility] | | | | + + + +------+ + + + + | Result panel 190 | + + + + + + + + + | | 2022-08-06 | [facility] | YELLOW | (missing) | (missing) | | (unavailable | 20:45:07 | [facility] | | | | + + + + + + + + + | Result panel 191 | + + + + + +---------+ + + | | 2022-08-06 | [facility] | CLEAR | (missing) | (missing) | | (unavailable | 20:45:07 | [facility] | | | | + + + +---------+ + + + + | Result panel 192 | + + + + + + + + + | | 2022-08-06 | [facility] | NEGATIVE | (missing) | (missing) | | (unavailable | 20:45:07 | [facility] | | | | + + + + + + + + + | Result panel 193 | + + + + + + + + + | | 2022-08-06 | [facility] | NEGATIVE | (missing) | (missing) | | (unavailable | 20:45:07 | [facility] | | | | + + + + + + + + + | Result panel 194 | + + + + + +---------+ + + | | 2022-08-06 | [facility] | TRACE | (missing) | (missing) | | (unavailable | 20:45:07 | [facility] | | | | + + + +---------+ + + + + | Result panel 195 | + + + + + +---------+ + + | | 2022-08-06 | [facility] | 1.020 | (missing) | (missing) | | (unavailable | 20:45:07 | [facility] | | | | + + + +---------+ + + + + | Result panel 196 | + + + + + +---------+ + + | | 2022-08-06 | [facility] | SMALL | (missing) | (missing) | | (unavailable | 20:45:07 | [facility] | | | | + + + +---------+ + + + + | Result panel 197 | + + + + + +-------+ + + | | 2022-08-06 | [facility] | 6.5 | (missing) | (missing) | | (unavailable | 20:45:07 | [facility] | | | | + + + +-------+ + + + + | Result panel 198 | + + + + + + + + + | | 2022-08-06 | [facility] | NEGATIVE | (missing) | (missing) | | (unavailable | 20:45:07 | [facility] | | | | + + + + + + + + + | Result panel 199 | + + + + + + + + + | | 2022-08-06 | [facility] | NORMAL | (missing) | (missing) | | (unavailable | 20:45:07 | [facility] | | | | + + + + + + + + + | Result panel 200 | + + + + + + + + + | | 2022-08-06 | [facility] | NEGATIVE | (missing) | (missing) | | (unavailable | 20:45:07 | [facility] | | | | + + + + + + + + + | Result panel 201 | + + + + + +---------+ + + | | 2022-08-06 | [facility] | SMALL | (missing) | (missing) | | (unavailable | 20:45:07 | [facility] | | | | + + + +---------+ + + + + | Result panel 202 | + + + + + +-------+ + + | | 2022-08-06 | [facility] | 4-6 | (missing) | (missing) | | (unavailable | 20:45:07 | [facility] | | | | + + + +-------+ + + + + | Result panel 203 | + + + + + +--------+ + + | | 2022-08-06 | [facility] | 7-11 | (missing) | (missing) | | (unavailable | 20:45:07 | [facility] | | | | + + + +--------+ + + + + | Result panel 204 | + + + + + + + + + | | 2022-08-06 | [facility] | SQUAMOUS 3+ | (missing) | (missing) | | (unavailable | 20:45:07 | [facility] | | | | + + + + + + + + + | Result panel 205 | + + + + + +------+ + + | | 2022-08-06 | [facility] | No | (missing) | (missing) | | (unavailable | 20:45:07 | [facility] | | | | + + + +------+ + + + + | Result panel 206 | + + + + + +--------+ + + | | 2022-08-11 | [facility] | 14.7 | (missing) | (missing) | | (unavailable | 16:17:07 | [facility] | | | | + + + +--------+ + + + + | Result panel 207 | + + + + + +--------+ + + | | 2022-08-11 | [facility] | 5.31 | (missing) | (missing) | | (unavailable | 16:17:07 | [facility] | | | | + + + +--------+ + + + + | Result panel 208 | + + + + + +--------+ + + | | 2022-08-11 | [facility] | 15.0 | (missing) | (missing) | | (unavailable | 16:17:07 | [facility] | | | | + + + +--------+ + + + + | Result panel 209 | + + + + + +--------+ + + | | 2022-08-11 | [facility] | 44.6 | (missing) | (missing) | | (unavailable | 16:17:07 | [facility] | | | | + + + +--------+ + + + + | Result panel 210 | + + + + + +--------+ + + | | 2022-08-11 | [facility] | 83.9 | (missing) | (missing) | | (unavailable | 16:17:07 | [facility] | | | | + + + +--------+ + + + + | Result panel 211 | + + + + + +--------+ + + | | 2022-08-11 | [facility] | 28.3 | (missing) | (missing) | | (unavailable | 16:17:07 | [facility] | | | | + + + +--------+ + + + + | Result panel 212 | + + + + + +--------+ + + | | 2022-08-11 | [facility] | 33.7 | (missing) | (missing) | | (unavailable | 16:17:07 | [facility] | | | | + + + +--------+ + + + + | Result panel 213 | + + + + + +--------+ + + | | 2022-08-11 | [facility] | 14.0 | (missing) | (missing) | | (unavailable | 16::07 | [facility] | | | | + + + +--------+ + + + + | Result panel 214 | + + + + + +-------+ + + | | 2022-08-11 | [facility] | 393 | (missing) | (missing) | | (unavailable | 16:17:07 | [facility] | | | | + + + +-------+ + + + + | Result panel 215 | + + + + + +------+ + + | | 2022-08-11 | [facility] | 57 | (missing) | (missing) | | (unavailable | 16:17:07 | [facility] | | | | + + + +------+ + + + + | Result panel 216 | + + + + + +------+ + + | | 2022-08-11 | [facility] | 19 | (missing) | (missing) | | (unavailable | 16:17:07 | [facility] | | | | + + + +------+ + + + + | Result panel 217 | + + + + + +------+ + + | | 2022-08-11 | [facility] | 17 | (missing) | (missing) | | (unavailable | 16:17:07 | [facility] | | | | + + + +------+ + + + + | Result panel 218 | + + + + + +-----+ + + | | 2022-08-11 | [facility] | 4 | (missing) | (missing) | | (unavailable | 16:17:07 | [facility] | | | | + + + +-----+ + + + + | Result panel 219 | + + + + + +-----+ + + | | 2022-08-11 | [facility] | 1 | (missing) | (missing) | | (unavailable | 16:17:07 | [facility] | | | | + + + +-----+ + + + + | Result panel 220 | + + + + + +-----+ + + | | 2022-08-11 | [facility] | 2 | (missing) | (missing) | | (unavailable | 16:17:07 | [facility] | | | | + + + +-----+ + + + + | Result panel 221 | + + + + + +-------+---------+ + | | 2022-08-11 | [facility] | 103 | mg/dL | (missing) | | (unavailable | 16:17:07 | [facility] | | | | + + + +-------+---------+ + + + | Result panel 222 | + + + + + +-----+---------+ + | | 2022-08-11 | [facility] | 9 | mg/dL | (missing) | | (unavailable | 16:17:07 | [facility] | | | | + + + +-----+---------+ + + + | Result panel 223 | + + + + + +--------+---------+ + | | 2022-08-11 | [facility] | 0.94 | mg/dL | (missing) | | (unavailable | 16:17:07 | [facility] | | | | + + + +--------+---------+ + + + | Result panel 224 | + + + + + +------+ + + | | 2022-08-11 | [facility] | 73 | (missing) | (missing) | | (unavailable | 16:17:07 | [facility] | | | | + + + +------+ + + + + | Result panel 225 | + + + + + +--------+ + + | | 2022-08-11 | [facility] | 9.57 | (missing) | (missing) | | (unavailable | 16:17:07 | [facility] | | | | + + + +--------+ + + + + | Result panel 226 | + + + + + +-------+ + + | | 2022-08-11 | [facility] | 138 | (missing) | (missing) | | (unavailable | 16:17:07 | [facility] | | | | + + + +-------+ + + + + | Result panel 227 | + + + + + +-------+ + + | | 2022-08-11 | [facility] | 3.0 | (missing) | (missing) | | (unavailable | 16:17:07 | [facility] | | | | + + + +-------+ + + + + | Result panel 228 | + + + + + +-------+ + + | | 2022-08-11 | [facility] | 100 | (missing) | (missing) | | (unavailable | 16:17:07 | [facility] | | | | + + + +-------+ + + + + | Result panel 229 | + + + + + +------+ + + | | 2022-08-11 | [facility] | 29 | (missing) | (missing) | | (unavailable | 16:17:07 | [facility] | | | | + + + +------+ + + + + | Result panel 230 | + + + + + +--------+ + + | | 2022-08-11 | [facility] | 12.0 | (missing) | (missing) | | (unavailable | 16:17:07 | [facility] | | | | + + + +--------+ + + + + | Result panel 231 | + + + + + +-------+---------+ + | | 2022-08-11 | [facility] | 9.6 | mg/dL | (missing) | | (unavailable | 16:17:07 | [facility] | | | | + + + +-------+---------+ + + + | Result panel 232 | + + + + + +-------+ + + | | 2022-08-11 | [facility] | 8.5 | (missing) | (missing) | | (unavailable | 16:17:07 | [facility] | | | | + + + +-------+ + + + + | Result panel 233 | + + + + + +-------+ + + | | 2022-08-11 | [facility] | 4.1 | (missing) | (missing) | | (unavailable | 16:17:07 | [facility] | | | | + + + +-------+ + + + + | Result panel 234 | + + + + + +-------+ + + | | 2022-08-11 | [facility] | 4.4 | (missing) | (missing) | | (unavailable | 16:17:07 | [facility] | | | | + + + +-------+ + + + + | Result panel 235 | + + + + + +--------+ + + | | 2022-08-11 | [facility] | 0.93 | (missing) | (missing) | | (unavailable | 16:17:07 | [facility] | | | | + + + +--------+ + + + + | Result panel 236 | + + + + + +-------+ + + | | 2022-08-11 | [facility] | 0.3 | (missing) | (missing) | | (unavailable | 16:17:07 | [facility] | | | | + + + +-------+ + + + + | Result panel 237 | + + + + + +------+ + + | | 2022-08-11 | [facility] | 29 | (missing) | (missing) | | (unavailable | 16:17:07 | [facility] | | | | + + + +------+ + + + + | Result panel 238 | + + + + + +------+ + + | | 2022-08-11 | [facility] | 62 | (missing) | (missing) | | (unavailable | 16:17:07 | [facility] | | | | + + + +------+ + + + + | Result panel 239 | + + + + + +-------+ + + | | 2022-08-11 | [facility] | 121 | (missing) | (missing) | | (unavailable | 16:17:07 | [facility] | | | | + + + +-------+ + + Social History No information. Vital Signs + + + +---------+ | date | measurement | value | units | + + + +---------+ | 2022-01-10 00:00 | BMI | 28.2 | kg/m2 | + + + +---------+ | 2022-01-10 00:00 | BP_diastolic | 65 | mmHg | + + + +---------+ | 2022-01-10 00:00 | BP_diastolic | 97 | mmHg | + + + +---------+ | 2022-01-10 00:00 | BP_systolic | 158 | mmHg | + + + +---------+ | 2022-01-10 00:00 | BP_systolic | 160 | mmHg | + + + +---------+ | 2022-01-10 00:00 | heart_rate | 76 | /min | + + + +---------+ | 2022-01-10 00:00 | heart_rate | 79 | /min | + + + +---------+ | 2022-01-10 00:00 | height_metric | 157.48 | cm | + + + +---------+ | 2022-01-10 00:00 | height_standard | 62 | in | + + + +---------+ | 2022-01-10 00:00 | o2_saturation | 95 | % | + + + +---------+ | 2022-01-10 00:00 | o2_saturation | 97 | % | + + + +---------+ | 2022-01-10 00:00 | respiration_rate | 16 | /min | + + + +---------+ | 2022-01-10 00:00 | respiration_rate | 17 | /min | + + + +---------+ | 2022-01-10 00:00 | temperature_metric | 36.67 | C | | | | | | + + + +---------+ | 2022-01-10 00:00 | temperature_metric | 36.89 | C | | | | | | + + + +---------+ | 2022-01-10 00:00 | | 98 | F | | | temperature_standar | | | | | d | | | + + + +---------+ | 2022-01-10 00:00 | | 98.4 | F | | | temperature_standar | | | | | d | | | + + + +---------+ | 2022-01-10 00:00 | weight_metric | 69.85 | kg | + + + +---------+ | 2022-01-10 00:00 | weight_standard | 153.99 | lb | + + + +---------+ | 2022-01-10 00:00 | weight_standard | 154 | lb | + + + +---------+ | 2022-01-14 00:00 | BMI | 28.2 | kg/m2 | + + + +---------+ | 2022-01-14 00:00 | BP_diastolic | 106 | mmHg | + + + +---------+ | 2022-01-14 00:00 | BP_systolic | 162 | mmHg | + + + +---------+ | 2022-01-14 00:00 | heart_rate | 86 | /min | + + + +---------+ | 2022-01-14 00:00 | height_metric | 157.48 | cm | + + + +---------+ | 2022-01-14 00:00 | height_standard | 62 | in | + + + +---------+ | 2022-01-14 00:00 | o2_saturation | 99 | % | + + + +---------+ | 2022-01-14 00:00 | respiration_rate | 16 | /min | + + + +---------+ | 2022-01-14 00:00 | temperature_metric | 36.56 | C | | | | | | + + + +---------+ | 2022-01-14 00:00 | | 97.8 | F | | | temperature_standar | | | | | d | | | + + + +---------+ | 2022-01-14 00:00 | weight_metric | 69.85 | kg | + + + +---------+ | 2022-01-14 00:00 | weight_standard | 153.99 | lb | + + + +---------+ | 2022-01-14 00:00 | weight_standard | 154 | lb | + + + +---------+ | 2022-07-14 00:00 | BMI | 28.9 | kg/m2 | + + + +---------+ | 2022-07-14 00:00 | BP_diastolic | 84 | mmHg | + + + +---------+ | 2022-07-14 00:00 | BP_systolic | 117 | mmHg | + + + +---------+ | 2022-07-14 00:00 | heart_rate | 90 | /min | + + + +---------+ | 2022-07-14 00:00 | height_metric | 157.48 | cm | + + + +---------+ | 2022-07-14 00:00 | height_standard | 62 | in | + + + +---------+ | 2022-07-14 00:00 | o2_saturation | 96 | % | + + + +---------+ | 2022-07-14 00:00 | respiration_rate | 14 | /min | + + + +---------+ | 2022-07-14 00:00 | temperature_metric | 36.33 | C | | | | | | + + + +---------+ | 2022-07-14 00:00 | | 97.4 | F | | | temperature_standar | | | | | d | | | + + + +---------+ | 2022-07-14 00:00 | weight_metric | 71.67 | kg | + + + +---------+ | 2022-07-14 00:00 | weight_standard | 158 | lb | + + + +---------+ | 2022-07-14 00:00 | weight_standard | 158.01 | lb | + + + +---------+ | 2022-08-06 00:00 | BMI | 27.4 | kg/m2 | + + + +---------+ | 2022-08-06 00:00 | BP_diastolic | 99 | mmHg | + + + +---------+ | 2022-08-06 00:00 | BP_systolic | 137 | mmHg | + + + +---------+ | 2022-08-06 00:00 | heart_rate | 113 | /min | + + + +---------+ | 2022-08-06 00:00 | height_metric | 157.48 | cm | + + + +---------+ | 2022-08-06 00:00 | height_standard | 62 | in | + + + +---------+ | 2022-08-06 00:00 | o2_saturation | 96 | % | + + + +---------+ | 2022-08-06 00:00 | respiration_rate | 12 | /min | + + + +---------+ | 2022-08-06 00:00 | temperature_metric | 37.67 | C | | | | | | + + + +---------+ | 2022-08-06 00:00 | | 99.8 | F | | | temperature_standar | | | | | d | | | + + + +---------+ | 2022-08-06 00:00 | weight_metric | 68.04 | kg | + + + +---------+ | 2022-08-06 00:00 | weight_standard | 150 | lb | + + + +---------+ | 2022-08-11 00:00 | BMI | 28.5 | kg/m2 | + + + +---------+ | 2022-08-11 00:00 | BP_diastolic | 105 | mmHg | + + + +---------+ | 2022-08-11 00:00 | BP_systolic | 147 | mmHg | + + + +---------+ | 2022-08-11 00:00 | heart_rate | 85 | /min | + + + +---------+ | 2022-08-11 00:00 | height_metric | 157.48 | cm | + + + +---------+ | 2022-08-11 00:00 | height_standard | 62 | in | + + + +---------+ | 2022-08-11 00:00 | o2_saturation | 96 | % | + + + +---------+ | 2022-08-11 00:00 | respiration_rate | 16 | /min | + + + +---------+ | 2022-08-11 00:00 | temperature_metric | 37.06 | C | | | | | | + + + +---------+ | 2022-08-11 00:00 | | 98.7 | F | | | temperature_standar | | | | | d | | | + + + +---------+ | 2022-08-11 00:00 | weight_metric | 70.62 | kg | + + + +---------+ | 2022-08-11 00:00 | weight_standard | 155.69 | lb | + + + +---------+"
--- OUTSIDE RECORDS SUMMARY | ~2022-11-24 | XMS | Continuity of Care Document ---
Demographics + + + | Address | [address] | | | [place] [address] | + + + | Preferred Language | Unknown | + + + | Marital Status | | + + + | Restorationist Affiliation | Unknown | + + + | Race | White | + + + | Ethnic Group | Not or | + + + Author + + + | Author | [facility] | + + + | Organization | [facility] | + + + | Address | [address] | | | [place] [address] | + + + | Phone | | + + + Care Team Providers + + + + | Care Treasurer Name | Role | Phone | + [...] | (no severity) | | | | [facility] | | | | | | [facility] [...] + | 2022-01-14 00:00 | Tdap | [facility] | + + + + Medications + + + + | date | description | facility | + + + + | 2022-07-14 00:00 | ONDANSETRON | [facility] | + + + + | 2019-02-02 00:00 | PHENAZOPYRIDINE HCL | [facility] | + + + + | 2022-01-10 00:00 | PHENAZOPYRIDINE HCL | [facility] | + + + + | 2022-01-14 00:00 | PHENAZOPYRIDINE HCL | [facility] | + + + + | 2022-07-14 00:00 | PHENAZOPYRIDINE HCL | [facility] | + + + + | 2022-08-06 00:00 | PHENAZOPYRIDINE HCL | [facility] | + + + + | 2022-08-11 00:00 | PHENAZOPYRIDINE HCL | [facility] | + + + + | 2022-01-10 00:00 | POTASSIUM CHLORIDE | [facility] | + + + + | 2022-01-14 00:00 | POTASSIUM CHLORIDE | [facility] | + + + + | 2022-07-14 00:00 | POTASSIUM CHLORIDE | [facility] | + + + + | 2022-08-06 00:00 | POTASSIUM CHLORIDE | [facility] | + + + + | 2022-08-11 00:00 | POTASSIUM CHLORIDE | [facility] | + + + + | 2022-01-10 00:00 | TOPIRAMATE | [facility] | + + + + | 2022-01-14 00:00 | TOPIRAMATE | [facility] | + + + + | 2022-07-14 00:00 | TOPIRAMATE | [facility] | + + + + | 2022-08-06 00:00 | TOPIRAMATE | [facility] | + + + + | 2022-08-11 00:00 | TOPIRAMATE | [facility] | + + + + | 2022-01-10 00:00 | FLUTICASONE PROPIONATE 50 | [facility] | | | MCG | | + + + + | 2022-01-14 00:00 | FLUTICASONE PROPIONATE 50 | [facility] | | | MCG | | + + + + | 2022-07-14 00:00 | FLUTICASONE PROPIONATE 50 | [facility] | | | MCG | | + + + + | 2022-08-06 00:00 | FLUTICASONE PROPIONATE 50 | [facility] | | | MCG | | + + + + | 2022-08-11 00:00 | FLUTICASONE PROPIONATE 50 | [facility] | | | MCG | | + + + + | 2022-01-10 00:00 | POTASSIUM CHLORIDE | [facility] | + + + + | 2022-01-14 00:00 | POTASSIUM CHLORIDE | [facility] | + + + + | 2022-08-06 00:00 | POTASSIUM CHLORIDE | [facility] | + + + + | 2022-08-11 00:00 | POTASSIUM CHLORIDE | [facility] | + + + + | 2022-07-14 00:00 | Desvenlafaxine Succinate | [facility] | + + + + | 2022-08-06 00:00 | Desvenlafaxine Succinate | [facility] | + + + + | 2022-08-11 00:00 | Desvenlafaxine Succinate | [facility] | + + + + | 2022-01-10 00:00 | IBUPROFEN | [facility] | + + + + | 2022-01-14 00:00 | IBUPROFEN | [facility] | + + + + | 2022-07-14 00:00 | IBUPROFEN | [facility] | + + + + | 2022-01-10 00:00 | Cholecalciferol (Vitamin | [facility] | | | D3) | | + + + + | 2022-01-14 00:00 | Cholecalciferol (Vitamin | [facility] | | | D3) | | + + + + | 2022-07-14 00:00 | Cholecalciferol (Vitamin | [facility] | | | D3) | | + + + + | 2022-08-06 00:00 | Cholecalciferol (Vitamin | [facility] | | | D3) | | + + + + | 2022-08-11 00:00 | Cholecalciferol (Vitamin | [facility] | | | D3) | | + + + + | 2022-08-11 00:00 | VANCOMYCIN HCL | [facility] | + + + + | 2022-08-11 00:00 | Estradiol | [facility] | + + + + | 2022-01-10 00:00 | HYDROCHLOROTHIAZIDE | [facility] | + + + + | 2022-01-14 00:00 | HYDROCHLOROTHIAZIDE | [facility] | + + + + | 2022-07-14 00:00 | HYDROCHLOROTHIAZIDE | [facility] | + + + + | 2022-08-06 00:00 | HYDROCHLOROTHIAZIDE | [facility] | + + + + | 2022-08-11 00:00 | HYDROCHLOROTHIAZIDE | [facility] | + + + + | 2022-08-06 00:00 | ONDANSETRON | [facility] | + + + + | 2022-08-11 00:00 | ONDANSETRON | [facility] | + + + + | 2022-07-14 00:00 | VANCOMYCIN HCL | [facility] | + + + + | 2019-02-02 00:00 | NITROFURANTOIN MONOHYD | [facility] | | | MACROCR | | + + + + | 2022-01-10 00:00 | VARENICLINE TARTRATE | [facility] | + + + + | 2022-01-14 00:00 | VARENICLINE TARTRATE | [facility] | + + + + | 2022-07-14 00:00 | VARENICLINE TARTRATE | [facility] | + + + + | 2022-08-06 00:00 | CHOLESTYRAMINE | [facility] | + + + + | 2022-01-14 00:00 | | [facility] | | | SULFAMETHOXAZOLE/TRIMETHOPR | | | | IM DS | | + + + + | 2022-01-10 00:00 | ZOLPIDEM TARTRATE | [facility] | + + + + | 2022-01-14 00:00 | ZOLPIDEM TARTRATE | [facility] | + + + + | 2022-07-14 00:00 | ZOLPIDEM TARTRATE | [facility] | + + + + | 2022-01-10 00:00 | HYDROCODONE/APAP | [facility] | | | (10-325MG) | | + + + + | 2022-01-14 00:00 | HYDROCODONE/APAP | [facility] | | | (10-325MG) | | + + + + | 2022-07-14 00:00 | HYDROCODONE/APAP | [facility] | | | (10-325MG) | | + + + + | 2022-08-06 00:00 | HYDROCODONE/APAP | [facility] | | | (10-325MG) | | + + + + | 2022-08-11 00:00 | HYDROCODONE/APAP | [facility] | | | (10-325MG) | | + + + + | 2022-01-10 00:00 | LOSARTAN POTASSIUM | [facility] | + + + + | 2022-01-14 00:00 | LOSARTAN POTASSIUM | [facility] | + + + + | 2022-07-14 00:00 | LOSARTAN POTASSIUM | [facility] | + + + + | 2022-08-06 00:00 | LOSARTAN POTASSIUM | [facility] | + + + + | 2022-08-11 00:00 | LOSARTAN POTASSIUM | [facility] | + + + + | 2022-01-10 00:00 | BUPROPION HCL | [facility] | + + + + | 2022-01-14 00:00 | BUPROPION HCL | [facility] | + + + + Problems + + + + | date | description | facility | + + + + | 2017-07-09 00:00 | Nonspecific chest pain | [facility] | + + + + | 2019-02-02 00:00 | Urinary tract infection | [facility] | + + + + | 2019-05-15 00:00 | Bronchitis | [facility] | + + + + | 2022-01-10 00:00 | Chest pain | [facility] | + + + + | 2022-01-14 00:00 | Dog bite | [facility] | + + + + | 2022-03-22 12:51 | CHEST PAIN, UNSPECIFIED | [facility] | + + + + | 2022-06-07 16:07 | SLEEP APNEA, UNSPECIFIED | [facility] | + + + + | 2022-07-14 00:00 | Clostridioides difficile | [facility] | | | diarrhea | | + [...] + + | 2022-07-14 12:59 | OTHER ARCHITECT IN TRAINING (CURRENT) | [facility] | | | DRUG [...] + | 2022-08-06 00:00 | Gastroenteritis | [facility] | + + + + | 2022-08-06 [...] + + | 2022-08-06 17:50 | OTHER ARCHITECT IN TRAINING (CURRENT) | [facility] | | | DRUG [...] | 2022-08-11 00:00 | Acute colitis | [facility] | + + + + | 2022-08-11 [...] + + | 2022-08-11 13:19 | OTHER ARCHITECT IN TRAINING (CURRENT) | [facility] | | | DRUG [...]
[~2022-11-24 23:30] MED LIST changes: +ESTRADIOL42.5 GM; +VANCOCIN HCL125 MG PO
--- OUTSIDE RECORDS SUMMARY | 2022-11-24 23:32 | XMS ---
PreManage Notification: MICHAEL GEE Security Hog Tender Events No recent Security Events currently on file CRITERIA MET - [facility] CARE PROVIDERS SHLOMO FIGUEROALM Internal Medicine 02/04/2019-Current PHONE: Unknown -, Vikas- Dentist: Export Agent [facility] PHONE: [phone] YULIA WETZEL Physician Clothing Man Current PHONE: Unknown [place] has no Care Guidelines for this patient. Care History Medical/Surgical 05/16/2019 [facility] Left voice mail to follow up with PCP.\T\nbsp; Next scheduled appointment not until 09/10/2019 02/04/2019 [facility] - Patient is currently established with [facility]. If patient is seen in the ED during business hours. Please contact CHWs at [facility]. Care Recommendation: If this patient [...] providing care. E.D. VISIT COUNT (12 MO.) 6 [place] TOTAL 6 NOTE: Visits indicate total known visits. ED/UCC VISIT TRACKING (12 MO.) 11/24/2022 23:31 [place] [place] TYPE: Emergency COMPLAINT: - CHEST PAIN 08/11/2022 13:19 [place] TYPE: Emergency COMPLAINT: - RECTAL BLEEDING, DIARRHEA, NAUSEA DIAGNOSES: - Allergy status to other antibiotic agents - Allergy status to other drugs, medicaments and biological substances - Allergy status to penicillin - Allergy status to sulfonamides - Diarrhea, unspecified - Essential (primary) hypertension - Latex allergy status - Noninfective gastroenteritis and colitis, unspecified - Old myocardial infarction - Other assistant terminal manager (current) drug therapy - Personal history of nicotine dependence 08/06/2022 17:50 [place] [place] TYPE: Emergency COMPLAINT: - FLU SYMPTOMS DIAGNOSES: - Allergy status to other antibiotic agents - Allergy status to other drugs, medicaments and biological substances - Allergy status to penicillin - Allergy status to sulfonamides - Diarrhea, unspecified - Essential (primary) hypertension - Latex allergy status - Noninfective gastroenteritis and colitis, unspecified - Old myocardial infarction - Other senior care (current) drug therapy - Personal history of nicotine dependence 07/14/2022 12:59 [place] [place] TYPE: Emergency COMPLAINT: - DIARRHEA, DEHYDRATED, [...] status - Old myocardial infarction - Other assistant terminal manager (current) drug therapy - Personal history [...] of left hand, initial encounter - Other assistant terminal manager (current) drug therapy - Personal history of nicotine dependence 01/10/2022 11:27 [place] TYPE: Emergency COMPLAINT: - CHEST PAIN DIAGNOSES: - Allergy status to other antibiotic agents - Allergy status to other drugs, medicaments and biological substances - Allergy status to penicillin - Chest pain, unspecified - Essential (primary) hypertension - Latex allergy status - Old myocardial infarction - Other senior care (current) drug therapy - Personal history of nicotine dependence INPATIENT VISIT TRACKING (12 MO.) No inpatient visits to display in this time frame [email or web address]
[2022-11-24] MEDS ORDERED: VENTOLIN HFA18 GM INH (23:45)
[2022-11-24] MEDS ORDERED: LORATADINE10 MG PO (23:45)
[2022-11-25] LABS: BASOPHILS 0.7 % (0-2); EOSINOPHILS 2.6 % (0-6); HEMATOCRIT 42.5 % (35.0-50.0); LYMPHOCYTES 27.6 % (24-44); MCH 28.1 (27-36); MCV 85.2 fl (81-99); MONOCYTES 8.1 % (0-12); PLATELET COUNT 385 K/uL (140-440); RBC 4.99 M/ul (4.3-5.7); RDW 14.4 (10.5-15.0)
[2022-11-25 00:20] LABS: PARTIAL THROMBOPLASTIN TIME 27.3 Sec (22.9-41.3)
[2022-11-25 00:24] LABS: INR 0.96 (0.80-1.30); PROTIME 12.3 Sec (11.2-14.2)
[2022-11-25 00:26] LABS: ALBUMIN 3.9 g/dL (3.4-5.0); ALBUMIN/GLOBULIN RATIO 1.11 (1.1-2.4); ANION GAP 14.1 (7-21); BILIRUBIN, TOTAL 0.3 ng/dL (0.2-1.0); BUN/CREATININE RATIO 16.66 (6.0-28.6); CALCIUM 9.6 mg/dL (8.5-10.1); CREATININE, SERUM 0.96 mg/dL (0.55-1.02); POTASSIUM 3.1 mmol/L (3.5-5.1); PROTEIN, TOTAL 7.4 g/dL (6.4-8.2)
[2022-11-25] MEDS ORDERED: CYCLOBENZAPRINE10 MG PO (00:32)
[2022-11-25 00:45] VITALS: BP 122/91
--- NOTE | 2022-11-25 19:23 | EKG ---
[facility] [address] [place], [place] [address] Signed Normal sinus rhythm Nonspecific ST and T wave abnormality Abnormal ECG When compared with ECG of 10-JAN-2022 11:28, No significant change was found Confirmed by DONNA CARRERA MD ([id number]) on 11/25/2022 7:22:48 PM Electronically Signed By: DONNA CARRERA 11/25/221922 PATIENT NAME: MARLENMICHAELZOEY TINOCO Electrocardiogram DATE OF : 70 PHYSICIAN: DONNA CARRERA REPORT #: [id number] REPORT IS CONFIDENTIAL AND NOT TO BE RELEASED WITHOUT AUTHORIZATION
== END 2022-11-25 00:45 | disposition home or self-care (01) ==
LOC: ED 23:30
PROVIDERS: Family Medicine
DX: R07.89 Other chest pain (principal); Z87.891 Personal history of nicotine dependence; Z88.0 Allergy status to penicillin; Z88.1 Allergy status to other antibiotic agents; Z91.040 Latex allergy status; Z88.8 Allergy status to other drugs, medicaments and biological substances; Z79.51 Long term (current) use of inhaled steroids; Z79.899 Other long term (current) drug therapy; I10 Essential (primary) hypertension; J45.909 Unspecified asthma, uncomplicated; I25.2 Old myocardial infarction
CPT/HCPCS: 36415; 71045; 80053; 83735; 83880; 84484; 85025; 85379; 85610; 85730; 93005; 93010; 96374; 99285-25; J2270

== ENCOUNTER 2023-10-27 14:12 | Emergency (ER) | payer OTHER ==
[~2023-10-27] VITALS: Ht 157.5 cm; Wt 93.4 kg
[~2023-10-27 14:12] MED LIST changes: +LORATADINE10 MG PO; +METOPROLOL SUCC50 MG PO; +VENTOLIN HFA18 GM INH; +ZOLPIDEM TART6.25 MG PO
[2023-10-27] MEDS ORDERED: FISH OIL 1,4001 EACH PO (14:38)
[2023-10-27] MEDS ORDERED: CANDICIDAL CAP1 EACH PO (14:38)
[2023-10-27 14:39] LABS: BASOPHILS 0.4 % (0-2); EOSINOPHILS 3.6 % (0-6); HEMATOCRIT 37.6 % (35.0-50.0); HEMOGLOBIN 12.8 g/dL (12.0-18.0); LYMPHOCYTES 26.5 % (24-44); MCH 29.5 (27-36); MCV 86.7 fl (81-99); MONOCYTES 4.7 % (0-12); NEUTROPHILS 64.8 % (39-80); PLATELET COUNT 332 K/uL (140-440); RBC 4.33 M/ul (4.3-5.7); RDW 14.6 (10.5-15.0)
[2023-10-27] MEDS ORDERED: MELATONIN1 MG PO (14:39)
[2023-10-27 14:58] LABS: ALBUMIN 3.7 g/dL (3.4-5.0); ALBUMIN/GLOBULIN RATIO 1.06 (1.1-2.4); ANION GAP 15.9 (7-21); BILIRUBIN, TOTAL 0.3 ng/dL (0.2-1.0); BUN/CREATININE RATIO 12.12 (6.0-28.6); CALCIUM 8.6 mg/dL (8.5-10.1); CREATININE, SERUM 0.99 mg/dL (0.55-1.02); MAGNESIUM 1.9 mg/dL (1.8-2.4); POTASSIUM 3.9 mmol/L (3.5-5.1); PROTEIN, TOTAL 7.2 g/dL (6.4-8.2)
[2023-10-27 16:34] VITALS: BP 114/86
--- NOTE | 2023-10-27 19:29 | EKG ---
[facility] [address] [place], [place] [address] Signed Normal sinus rhythm Normal ECG No previous ECGs available Confirmed by DONNA CARRERA MD ([id number]) on 10/27/2023 7:29:40 PM Electronically Signed By: DONNA CARRERA 10/27/23 1929 PATIENT NAME: MICHAEL GEEN Electrocardiogram DATE OF : 70 PHYSICIAN: DONNA CARRERA REPORT #: [id number] REPORT IS CONFIDENTIAL AND NOT TO BE RELEASED WITHOUT AUTHORIZATION
== END 2023-10-27 16:37 | disposition home or self-care (01) ==
LOC: ED 14:12
PROVIDERS: Emergency Medicine
DX: R07.89 Other chest pain (principal); I10 Essential (primary) hypertension; I25.2 Old myocardial infarction; Z87.891 Personal history of nicotine dependence; Z88.0 Allergy status to penicillin; Z88.8 Allergy status to other drugs, medicaments and biological substances; Z91.040 Latex allergy status; Z79.899 Other long term (current) drug therapy
CPT/HCPCS: 36415; 71045; 80053; 83735; 84484; 85025; 85379; 93005; 93010; 99285-25

== ENCOUNTER 2024-01-03 18:52 | Emergency (ER) | payer OTHER ==
[~2024-01-03] VITALS: Ht 157.5 cm; Wt 79.7 kg
[~2024-01-03 18:52] MED LIST changes: +CANDICIDAL CAP1 EACH PO; +FISH OIL 1,4001 EACH PO; +MELATONIN1 MG PO
[2024-01-03 21:27] VITALS: BP 149/91
== END 2024-01-03 21:27 | disposition home or self-care (01) ==
LOC: ED 18:52
DX: M23.92 Unspecified internal derangement of left knee (principal); S93.402A Sprain of unspecified ligament of left ankle, initial encounter; I10 Essential (primary) hypertension; J45.909 Unspecified asthma, uncomplicated; I25.2 Old myocardial infarction; Z87.891 Personal history of nicotine dependence; Z88.0 Allergy status to penicillin; Z88.2 Allergy status to sulfonamides; Z88.1 Allergy status to other antibiotic agents; Z91.040 Latex allergy status; Z88.8 Allergy status to other drugs, medicaments and biological substances; Z79.899 Other long term (current) drug therapy; V86.56XA Driver of dirt bike or motor/cross bike injured in nontraffic accident, initial encounter
CPT/HCPCS: 73560; 73590; 73610; 99284

== ENCOUNTER 2024-06-17 21:58 | Emergency (ER) | payer OTHER ==
[~2024-06-17] VITALS: Ht 157.5 cm; Wt 80.0 kg
[2024-06-17] MEDS ORDERED: ATORVASTATIN CA20 MG (22:21)
[2024-06-17] MEDS ORDERED: BENZONATATE100 MG (22:21)
[2024-06-17] MEDS ORDERED: PRILOSEC10 M1 (22:21)
[2024-06-17] MEDS ORDERED: ASPIRIN 81 MG CHEW PO ONE (22:45)
[2024-06-17 22:55] LABS: BASOPHILS 0.5 % (0-2); EOSINOPHILS 2.5 % (0-6); HEMATOCRIT 41.9 % (35.0-50.0); HEMOGLOBIN 14.1 g/dL (12.0-18.0); LYMPHOCYTES 28.2 % (24-44); MCH 29.3 (27-36); MCHC 33.6 g/dl (30-36); MCV 87.4 fl (81-99); MONOCYTES 7.8 % (0-12); PLATELET COUNT 321 K/uL (140-440); RDW 14.3 (10.5-15.0)
[2024-06-17 23:04] LABS: INR 0.95 (0.80-1.30); PROTIME 12.5 Sec (11.2-14.2)
[2024-06-17 23:12] LABS: ALBUMIN 4.5 g/dL (3.4-5.0); ALBUMIN/GLOBULIN RATIO 1.32 (1.1-2.4); ANION GAP 15.6 (7-21); BILIRUBIN, TOTAL 0.2 mg/dL (0.2-1.0); BUN/CREATININE RATIO 14.13 (6.0-28.6); CALCIUM 9.5 mg/dL (8.5-10.1); CREATININE, SERUM 0.92 mg/dL (0.55-1.02); MAGNESIUM 2.1 mg/dL (1.8-2.4); POTASSIUM 3.6 mmol/L (3.5-5.1); PROTEIN, TOTAL 7.9 g/dL (6.4-8.2)
[2024-06-17] MEDS ORDERED: LACTATED RINGER'S 1,000 ML IV ONE (23:30)
[2024-06-18] MEDS ORDERED: KETOROLAC TROMETHAMINE 30 MG/ML VIAL IV ONE (00:45)
[2024-06-18 01:18] VITALS: BP 146/92
--- NOTE | 2024-06-18 13:46 | EKG ---
[facility] [address] [place] [address] Signed Normal sinus rhythm Minimal voltage criteria for LVH, may be normal variant ( R in aVL ) Nonspecific ST and T wave abnormality Abnormal ECG When compared with ECG of 27-OCT-2023 14:14, Nonspecific T wave abnormality now evident in Anterior leads QT has shortened Confirmed by Anastasia Oropeza DO ([id number]) on 06/18/2024 1:46:06 PM Electronically Signed By: ANASTASIA OROPEZA DO 06/18/24 1346 PATIENT NAME: MICHAEL GEE Electrocardiogram DATE OF : 70 PHYSICIAN: ANASTASIA OROPEZA DO REPORT #: [id number] REPORT IS CONFIDENTIAL AND NOT TO BE RELEASED WITHOUT AUTHORIZATION
== END 2024-06-18 01:33 | disposition home or self-care (01) ==
LOC: ED 21:58
PROVIDERS: Internal Medicine
DX: R51.9 Headache, unspecified (principal); E86.0 Dehydration; I25.10 Atherosclerotic heart disease of native coronary artery without angina pectoris; I10 Essential (primary) hypertension; J45.909 Unspecified asthma, uncomplicated; I25.2 Old myocardial infarction; Z87.891 Personal history of nicotine dependence; Z88.0 Allergy status to penicillin; Z88.2 Allergy status to sulfonamides; Z88.1 Allergy status to other antibiotic agents; Z91.040 Latex allergy status; Z79.899 Other long term (current) drug therapy
CPT/HCPCS: 36415; 70450; 71045; 80053; 83735; 84484; 85025; 85379; 85610; 93005; 93010; 96361; 96374; 99284-25; A9270; J1885; J7121